=== PATIENT | female | born 1945 | race Caucasian/White ===

== ENCOUNTER → 2016-12-16 | Outpatient (CLI) | payer OTHER, MEDICARE ==
[~2016-12-16] VITALS: Ht 157.5 cm; Wt 71.2 kg
[~2016-12-16] MED LIST: AMBIEN 5 MG TABL5 M1 PO; ASPIR 8181 M1 PO; CALCIUM PO; HYDROCODONE-AP1 EAC6 PO; LEVOTHYROXIN0.125 M1 PO; LYRICA 50 MG50 MG PO; NEURONTIN 300300 M1 PO; NEURONTIN600 MG PO; PERCOCET 10-321 EACH PO; PRILOSEC OTC20 MG PO; TOPROL XL50 MG PO; XANAX 0.25 MG0.25 MG PO
--- NOTE | ~2016-12-16 | HPC ---
[facility] [address] [place] [address] PAIN MANAGEMENT CONSULTATION Name: JOHN PAUL STEINBERG [id number] Admission: 12/16/16 Attend Phys: Marco Mcfarlane DO Discharge: Date of : 43 Report #: [id number] THIS REPORT FOR: //name// CC: Marco Miranda DATE OF SERVICE: 12/16/2016 DATE OF SERVICE: 12/16/2016 CHIEF COMPLAINT: Low back pain, left lower extremity pain and paresthesias. HISTORY OF PRESENT ILLNESS: As you know, patient is a very pleasant 71-year-old female, who returns today in followup visit with recurrent low back pain, left lower extremity pain and paresthesias. She is placing pain score 7/10. States the pain is exacerbated with lying down, doing any activities, improves with medication, sitting and cold compresses. The patient indicates that she received 2 epidural injections under fluoroscopic guidance while she was in [place]. Apparently a caudal epidural injection was performed as well as an interlaminar injection. The patient received no benefit with either of these injections. She returns today in followup visit with pain level of 7/10 stating that she is considering surgical options, but at this time wants to undergo the 3rd and the final in series of epidural injections in the 6 months. She does understand that the 2 injections provided in [place] count as part of her injection series. She has requested to undergo this injection today in hopes of improving pain. ALLERGIES: No known drug allergies. CURRENT MEDICATIONS: Oxycodone, alprazolam, gabapentin, zolpidem, calcium carbonate, aspirin, levothyroxine, pregabalin, Toprol, omeprazole. SOCIAL HISTORY: The patient denies tobacco, alcohol, IV or illicit drug use. She is retired. She is accompanied by her , who is present in the room today. PHYSICAL EXAMINATION: VITAL SIGNS: Blood pressure 146/77, pulse is 73, respiratory rate 18, unlabored. The patient is 100% on room air. Height 5 feet 2 inches tall, weight 157, BMI calculated 28.7. GENERAL: Well-developed, well-nourished, well-hydrated 71-year-old female. She appears her stated age. She is placing current pain score 7/10. HEENT: Normocephalic, atraumatic. Pupils equal, round, reactive to light. Extraocular muscles are intact. Sclerae nonicteric without injection. NEUROLOGIC: Cranial nerves 2-12 grossly [place] [address] PAIN MANAGEMENT CONSULTATION Name: JOHN PAUL STEINBERG Room #: REG [facility].#: [id number] Admission: 12/16/16 Attend Phys: Marco Mcfarlane DO Discharge: Date of : 43 Report #: [id number] LUNGS: Clear. No wheeze, rhonchi or rales. CARDIOVASCULAR: Regular. No appreciable gallop or rub. ABDOMEN: Soft, mildly obese, normal active bowel sounds. EXTREMITIES: Show no clubbing, no cyanosis, no edema. MUSCULOSKELETAL: There is well-healed surgical scar over the lower lumbar spine from previous surgery. Seated straight leg raising negative. Supine straight leg raising positive. May's test negative. Modified Gaenslen's positive for axial low back pain. Ankle clonus negative. Babinski is negative. Muscle bulk and tone equal and symmetrical in lower extremities. Gait is mildly antalgic. ASSESSMENT: 1. Symptomatic lumbar radiculopathy. 2. Post-laminectomy syndrome. 3. Displacement of lumbar intervertebral disk with radicular symptoms. 4. Lumbosacral spondylosis with radicular symptoms. 5. Degeneration of the lumbar spine. 6. Chronic intractable pain. PLAN: 1. The patient returns today in followup visit where she indicates that she has had 2 epidural injections under fluoroscopic guidance performed in [place] before her return to the [facility]. From the paperwork, it is noted the patient underwent a caudal epidural injection received about 10% improvement in overall pain. She underwent an interlaminar epidural steroid injection under fluoroscopic guidance, which appears to be in the intrathecal space based on dye spread. The patient reports no improvement in symptoms with this injection as well. She has returned today requesting a single injection from our clinic, as she is aware that this is the third in the series of epidural injections in the 6 months. The patient and I did discuss at length the risks and the benefits of a possible third epidural injection. These risks include but are not necessarily limited to bleeding, bruising, infection, worsening pain, no relief of pain, also risk of temporary or permanent muscle weakness, temporary or permanent nerve damage, possible paralysis and . The patient states understood and wished to proceed. 2. The patient has appointment with her neurosurgeon to discuss surgical options. I will defer to the surgery team to discuss options of treatment. I did once again discuss with the patient spinal cord stimulator technology and its potential benefits. She will consider this as an option. She wishes to discuss further with neurosurgery. 3. We will see the patient back in followup visit on an as needed basis. As you are aware, this is the third and final in the 6 months series of injections. Her next injection would be 6 months from the initial injection in the caudal form performed in [place]. She was given the timeframe to which she can then reinitiate the next in the series of epidural injections. PROCEDURE NOTE [facility] [address] [place] [address] PAIN MANAGEMENT CONSULTATION Name: JOHN PAUL STEINBERG [facility] [id number] Admission: 12/16/16 Attend Phys: Marco Mcfarlane DO Discharge: Date of : 43 Report #: [id number] DESCRIPTION OF PROCEDURE: Epidural steroid injection under fluoroscopic guidance. After obtaining written consent, the patient was taken back to fluoroscopy suite, placed in prone position with pillow under abdomen to decrease lumbar lordosis. Skin overlying lumbosacral area prepped and draped in aseptic fashion. The lumbar intervertebral spaces were identified by AP fluoroscopy. Skin and subcutaneous tissue overlying target site of injection was anesthetized with 3 mL of 1% lidocaine. A 20-gauge 3-1/2 inch Tuohy needle advanced under fluoroscopic guidance towards the epidural space using a left paramedian approach. Epidural space identified using loss of resistance to air technique. After negative aspiration for heme or cerebrospinal fluid, 1 mL of Omnipaque was injected. A lumbar epidurogram was confirmed using both AP and oblique fluoroscopy as well as lateral fluoroscopy. After negative aspiration for heme or cerebrospinal fluid, 5 mL of a solution containing 2 mL 40 mg per mL, 80 mg total triamcinolone and 3 mL of lidocaine 1% injected slowly. Needle retracted group home, needle tract flushed 3 mL of 1% lidocaine and removed. Sterile bandage placed over injection site. No new motor deficits present in lower extremity following the procedure. The patient tolerated the procedure well, carefully escorted to recovery room in stable condition. No apparent complications. After meeting discharge criteria, the patient discharged home. By: [id number] Marco Mcfarlane DO /nt
[2016-12-16 09:58] VITALS: BP 146/77
== END | disposition home or self-care (01) ==
LOC: PAIN 12-10 10:55
DX: M51.16 Intervertebral disc disorders with radiculopathy, lumbar region (principal); M96.1 Postlaminectomy syndrome, not elsewhere classified; M47.27 Other spondylosis with radiculopathy, lumbosacral region; G89.29 Other chronic pain

== ENCOUNTER → 2017-12-23 | Outpatient (CLI) | payer OTHER, MEDICARE ==
[~2017-12-23] VITALS: Ht 157.5 cm; Wt 67.0 kg
[~2017-12-23] MED LIST changes: +OXYCODONE HCL5 M1 PO; -PERCOCET 10-321 EACH PO; +PERCOCET PO; +ROXICODONE5 MG PO
--- NOTE | ~2017-12-23 | HPC ---
[facility] [place] [address] PAIN MANAGEMENT CONSULTATION Name: JOHN PAUL STEINBERG Room #: REG RUBEN Shon#: [id number] Admission: 12/23/17 Attend Phys: Marco Mcfarlane DO Discharge: Date of : 43 Report #: [id number] THIS REPORT FOR: //name// CC: Marco Miranda MD DATE OF SERVICE: 12/23/2017 CHIEF COMPLAINT: Low back pain, left lower extremity pain and paresthesias. HISTORY OF PRESENT ILLNESS: As you know, the patient is a 72-year-old female who returns today in followup visit requesting epidural injection under fluoroscopic guidance. She has been advised by her neurosurgeon, Dr. Fox that no further interventions from a surgical standpoint would provide benefit. She is now placing pain score 6/10. She returns today in followup visit to discuss options for treatment. We discussed in the past epidural injections and they have provided some benefit and she has requested this today. We also discussed once again today the spinal cord stimulator therapy. Medication management can be initiated, but with opioid medication changes, there is a concern of long-term treatment options that may not be available. She does return requesting refill on medications at current dosing and has requested an epidural injection in hopes to improve pain. We will make further adjustments in her Lyrica as well. ALLERGIES: No known drug allergies. CURRENT MEDICATIONS: Alprazolam, Lyrica, zolpidem, oxycodone, calcium carbonate, aspirin, levothyroxine, metoprolol and omeprazole. SOCIAL HISTORY: The patient denies tobacco, alcohol, IV or illicit drug use. She is accompanied by her today. PQRS: The patient has known osteoarthritis, no rheumatoid arthritis. She places pain score at 6/10. She is not a fall risk, but has been using a cane for ambulation. She has not fallen in the last 3 months. She is not on blood thinner. She is treated for hypertension. She has been on opioids on and off for years. She is a low risk for opioid misuse. Pain impact score of 57/70 indicating severe interference. ALLERGIES: No known drug allergies. PHYSICAL EXAMINATION: VITAL SIGNS: Blood pressure 132/72, pulse 76, respiratory rate 14, unlabored. The patient is 98% on room air. Height 5 feet 2 inches tall, weight 147.8 pounds, BMI calculated 27. [address] [address] PAIN MANAGEMENT CONSULTATION Name: JOHN PAUL STEINBERG Room #: REG CLI [facility]#: [id number] Admission: 12/23/17 Attend Phys: Marco Mcfarlane DO Discharge: Date of : 43 Report #: [id number] GENERAL: Well-developed, well-nourished, well-hydrated 72-year-old female appearing stated age. Pain is rated around 6/10. HEENT: Normocephalic, atraumatic. Pupils equal, round, reactive to light. EXTREMITIES: Show no clubbing, no cyanosis, no edema. MUSCULOSKELETAL: Seated straight leg raising negative. Supine straight leg raising negative. May's test negative. Gait is antalgic favoring left lower extremity over right. Well-healed surgical scar of the lumbar region. Ankle clonus negative. Babinski is negative. ASSESSMENT: 1. Symptomatic lumbar radiculopathy. 2. Failed lumbar spine surgery. 3. Displacement of a lumbar intervertebral disk with radiculopathy. 4. Lumbosacral spondylosis with radiculopathy. 5. Chronic intractable pain. PLAN: 1. The patient returns today in followup visit indicating that she has recently talked with her surgeon and they advised that there is no option for surgery to address the patient's ongoing pain issues. She has been advised to return to our clinic and trial an epidural injection and determine if this would be beneficial. She returns today requesting this epidural injection be provided today. The patient was advised risks and benefits of this procedure, states understood and wished to proceed. 2. Recommend the patient increase her pregabalin to 300 mg once a day. This should help with neuropathic pain. We will increase the medication dose at this time. I have given her samples of the therapy. If this is effective, she will contact our clinic for refills. 3. The patient was provided prescription of oxycodone 5 mg dose, 1 tab 5 times a day as needed. I have given her #150 tablets, releases of today, 4 weeks from today, 8 weeks from today, 3 months worth of medication. As you are aware, we attempted to start the patient on long-acting formulation but coverage was suboptimal and the patient could not afford long-term therapy. We reverted back to the oxycodone, which has been somewhat beneficial. The patient states no side effects with its use. We will continue the therapy at this time, but adjust medications as necessary. 4. The patient was advised risks and benefits of a lumbar epidural injection. These risks include but are not necessarily limited to bleeding, bruising, infection, worsening pain, no relief of pain, also risk of temporary or permanent muscle weakness, temporary or permanent nerve damage, possible paralysis and . The patient states she understood and wished to proceed. 5. The patient will return to our clinic in 3 months for medication therapy or earlier for the next in a series of epidural injections and discussed the possibility of spinal cord stimulator technology. PROCEDURE NOTE [facility] [address] [place] [address] PAIN MANAGEMENT CONSULTATION Name: JOHN PAUL STEINBERG Room #: REG CLLaura Menendez#: [id number] Admission: 12/23/17 Attend Phys: Marco Mcfarlane DO Discharge: Date of : 43 Report #: [id number] DESCRIPTION OF PROCEDURE: Lumbar epidural steroid injection under fluoroscopic guidance. After obtaining written consent, the patient was taken back to fluoroscopy suite, placed in prone position with pillow under abdomen to decrease lumbar lordosis. Skin overlying lumbosacral area prepped and draped in aseptic fashion. Lumbar intervertebral space was identified by AP fluoroscopy. Skin and subcutaneous tissue overlying target site of injection was anesthetized with 3 mL of 1% lidocaine. A 20-gauge 3-1/2 inch Tuohy needle advanced under fluoroscopic guidance towards the epidural space using a midline approach. Epidural space was identified using loss of resistance to air technique. After negative aspiration for heme or cerebrospinal fluid, 1 mL of Omnipaque was injected. A lumbar epidurogram was confirmed using both AP and lateral fluoroscopy. After negative aspiration for heme or cerebrospinal fluid, 5 mL of a solution containing 2 mL 40 mg per mL, 80 mg total triamcinolone, 3 mL lidocaine 1% injected slowly. Needle retracted custodial, flushed with 1 mL of 1% lidocaine and removed. Sterile bandage placed over injection site. No new motor deficits present in lower extremity following procedure. The patient tolerated the procedure well, carefully escorted to recovery room in stable condition. No apparent complications. After meeting discharge criteria, the patient discharged home. By: [id number] Marco Mcfarlane DO /nt
[2017-12-23 09:43] VITALS: BP 132/72
== END | disposition home or self-care (01) ==
LOC: PAIN 06:56
DX: M51.16 Intervertebral disc disorders with radiculopathy, lumbar region (principal); M47.27 Other spondylosis with radiculopathy, lumbosacral region; G89.29 Other chronic pain; Z98.890 Other specified postprocedural states; Z79.899 Other long term (current) drug therapy

== ENCOUNTER 2018-03-16 17:45 | Emergency (ER) | payer OTHER, MEDICARE ==
[~2018-03-16] VITALS: Ht 157.5 cm; Wt 63.5 kg
[~2018-03-16 17:45] MED LIST changes: -ACYCLOVIR 400400 MG PO; -PREDNISONE 20 M20 M1 PO
[2018-03-16] MEDS ORDERED: PREDNISONE 20 M20 M1 PO (18:39)
[2018-03-16] MEDS ORDERED: ACYCLOVIR 400400 MG PO (18:39)
== END 2018-03-16 18:46 | disposition home or self-care (01) ==
LOC: ER 17:45
DX: R21 Rash and other nonspecific skin eruption (principal); I10 Essential (primary) hypertension; K21.9 Gastro-esophageal reflux disease without esophagitis; M19.90 Unspecified osteoarthritis, unspecified site; Z90.49 Acquired absence of other specified parts of digestive tract; E89.0 Postprocedural hypothyroidism

== ENCOUNTER → 2018-03-16 | Outpatient (CLI) | payer OTHER, MEDICARE ==
[~2018-03-16] VITALS: Ht 157.5 cm; Wt 65.7 kg
[~2018-03-16] MED LIST changes: +ACYCLOVIR 400400 MG PO; +MS CONTIN15 MG PO; +PREDNISONE 20 M20 M1 PO
--- NOTE | ~2018-03-16 | HPC ---
[facility] [address] [place] [address] PAIN MANAGEMENT CONSULTATION Name: JOHN PAUL STEINBERG Room #: REG RUBEN Serina.#: [id number] Admission: 03/16/18 Attend Phys: Marco Mcfarlane DO Discharge: Date of : 43 Report #: [id number] THIS REPORT FOR: //name// CC: Marco Miranda MD DATE OF SERVICE: 03/16/2018 REFERRING PHYSICIAN: Vincenzo Miranda M.D. CHIEF COMPLAINT: Low back pain, lower extremity pain and paresthesias, left greater than right. HISTORY OF PRESENT ILLNESS: As you know, the patient is a 73-year-old female who returns today in followup visit with ongoing low back pain, lower extremity symptoms with paresthesias. The patient underwent surgery with a fusion of the lumbar region. Unfortunately, there has been some complications with the surgery in one of the stabilizing rods has displaced and Surgery is evaluating the patient for possible further treatment. Recent MRI shows no neural foraminal stenosis, no nerve root impingement and no central canal stenosis or lateral recess stenosis and it appears her symptoms are related to chronic neuropathic symptoms and chronic low back pain. She returns today to discuss options for treatment. The patient is also describing symptoms of increasing abdominal discomfort, which appears to be related more to constipation issues. She returns to discuss options for treatment of this as well. She denies new injury, new trauma or any changes in medical history since our last visit. She has followed up with Neurosurgery who indicates no surgical option to address her ongoing back pain issues. ALLERGIES: No known drug allergies. CURRENT MEDICATIONS: Alprazolam, Lyrica, zolpidem, oxycodone, calcium carbonate, aspirin, levothyroxine, metoprolol and omeprazole. SOCIAL HISTORY: The patient denies tobacco, alcohol or IV or illicit drug use. She is accompanied by her who present in room today. PQRS: The patient has history of osteoarthritis involving the low back, bilateral knees and hips. No diagnosis of rheumatoid arthritis. She places pain score today around 4/10. She is not a fall risk, has not had a fall in the last 3 months but does use a cane for ambulation. She is not on blood thinners. She is treated for hypertension. She has been on and off opioids for very long periods of time. She has a low risk of abuse potential. Her functional assessment pain impact score 48/70. [facility] [address] [place] [address] PAIN MANAGEMENT CONSULTATION Name: JOHN PAUL STEINBERG Room #: REG CLI [facility]#: [id number] Admission: 03/16/18 Attend Phys: Marco Mcfarlane DO Discharge: Date of : 43 Report #: [id number] PHYSICAL EXAMINATION: VITAL SIGNS: Blood pressure 121/71, pulse 83 and respiratory rate 16 and unlabored. The patient is 96% on room air. Height 5 feet 2 inches tall, weight 144.8 pounds and BMI calculated 26.5. GENERAL: Well-developed, well-nourished and well-hydrated 73-year-old female, appears her stated age, placing current pain score 4/10. HEENT: Normocephalic and atraumatic. Pupils equal, round and reactive to light. Extraocular muscles are intact. EXTREMITIES: Show no clubbing, no cyanosis and no edema. MUSCULOSKELETAL: There is a well-healed surgical scar over the lumbar region. Gait remains antalgic favoring left lower extremity over right. Muscle bulk and tone equal and symmetrical on the lower extremities. Seated straight leg raising negative. Supine straight leg raising positive. Fabere's test negative. Modified Gaenslen's positive for axial low back pain. ASSESSMENT: 1. Symptomatic lumbar radiculopathy. 2. Failed lumbar spine surgery. 3. Displacement of lumbar intervertebral disk with radicular symptoms. 4. Lumbosacral spondylosis with radiculopathy. 5. 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 6. Opioid-induced constipation. 7. Chronic intractable pain. PLAN: 1. The patient has returned today in followup visit where she has discussed increasing abdominal discomfort and cramping. This appears to be related to the increase in her oxycodone use. I believe she is experiencing some opioid-induced constipation, which is causing abdominal discomfort. We discussed with the patient options for treatment. We would recommend initially conservative treatment with sadu-jws-yoziggn laxative type medications as this is ineffective. The possible addition of Amitiza or possibly Movantik if this continues. The patient will monitor her bowel movements more carefully and determine if her medications are the source of her symptoms. It does appear from physical exam and history she provides is just the case, we will monitor more closely but we will make additional changes to her daily regimen for bowel prophylaxis. 2. The patient apparently saw her neurosurgeon who advised the failure of the fusion from a standpoint of the slipping of the stabilizing jefferson on the left side will be monitored. There is no definitive surgery time. It does not appear that there are any changes in the fusion itself. The cages appear to be stable as does the fixation on the right. The fixation of the left has moved significantly from imaging in April of last year. In April, the jefferson was only 0.5 cm from its original position is now to 2-2.5 cm distance from. This may be the source of some of the patient's axial back pain but surgical options do not appear imminent. We would recommend watchful waiting. [facility] [address] [place] [address] PAIN MANAGEMENT CONSULTATION Name: JOHN PAUL STEINBERG Room #: REG RUBEN Shon#: [id number] Admission: 03/16/18 Attend Phys: Marco Mcfarlane DO Discharge: Date of : 43 Report #: [id number] 3. In regards to the patient's ongoing pain issues, we have discussed the options for treatment. She underwent an epidural injection at last visit per Dr. Croft's request. Unfortunately, this did not provide much in the way of improvement. We would recommend a more conservative treatment option with medication management to determine if we can control her symptoms successfully. If this is ineffective, I would recommend the patient returns to discuss with Dr. Croft the spinal cord stimulator option. 4. The patient will be started on MS Contin 15 mg dose and this will be used for baseline pain control. I am hopeful this will reduce the patient's constipation issues likely due to immediate release formulation of oxycodone as you are aware long-acting medications have less long-term effect on gastrointestinal issues and do immediate release formulations, which caused more consistent slowing of the bowel. We will start the patient on morphine today. We will review its efficacy at followup visit. She was given a 15 mg tablet of MS Contin twice a day to provide analgesia at present, the patient is taking 5 mg dose of oxycodone, which equals a 7.5 mg morphine dose per dosing. This appears to be an equivalent exchange of medication. She will monitor for any side effects of medication. We will discuss efficacy at followup visit. 5. The patient will contact the clinic next week with response to the morphine. There is a potential we may need to adjust her medications slightly and I am hopeful she will see good benefit without side effects. She will contact our clinic next week for further directions. 6. We will see the patient back in followup visit on an as needed basis. Again, she will contact our clinic next week about efficacy with the morphine. <ELECTRONICALLY SIGNED> By: Marco Mcfarlane DO 03/17/18 [id number] Marco Mcfarlane DO /nt
[2018-03-16 09:39] VITALS: BP 121/71
== END ==
LOC: PAIN 07:33
DX: M47.26 Other spondylosis with radiculopathy, lumbar region (principal); M51.16 Intervertebral disc disorders with radiculopathy, lumbar region; G89.4 Chronic pain syndrome; F11.99 Opioid use, unspecified with unspecified opioid-induced disorder

== ENCOUNTER → 2018-04-12 | Outpatient (CLI) | payer OTHER, MEDICARE ==
[~2018-04-12] MED LIST changes: +ACYCLOVIR 400400 MG PO; +PREDNISONE 20 M20 M1 PO
== END ==
LOC: ULTRA 09:54
DX: M79.89 Other specified soft tissue disorders (principal); M79.661 Pain in right lower leg; Z88.9 Allergy status to unspecified drugs, medicaments and biological substances

== ENCOUNTER → 2018-06-18 | Outpatient (CLI) | payer OTHER, MEDICARE ==
[~2018-06-18] VITALS: Ht 157.5 cm; Wt 65.7 kg
--- NOTE | ~2018-06-18 | HPC ---
[facility] [place] [address] PAIN MANAGEMENT CONSULTATION Name: JOHN PAUL STEINBERG Room #: REG [facility]#: [id number] Admission: 06/18/18 Attend Phys: Aldo Petty MD Discharge: Date of : 41 Report #: [id number] THIS REPORT FOR: //name// CC: Aldo Miranda DATE OF SERVICE: 06/18/2018 PRIMARY CARE PHYSICIAN: Vincenzo Miranda MD FOLLOWUP HISTORY: The patient is a 73-year-old female who has been followed in the pain clinic because of low back pain. She also has lower extremity paresthesias. She has undergone surgery with fusion of the lumbar region without significant improvement. 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 She returns today with a request for adjustment of her medications. She has been using morphine. States that her pain is exacerbated by sitting, lying down as well as certain activity of daily living, which can be problematic. She feels that her medications improve her condition. The patient is not having any untoward problems with the medication as return to the pain clinic for renewal of her medication. She is having no side effects. Rates her pain as a 1/10 at this juncture. ALLERGIES: No known drug allergies. CURRENT MEDICATIONS: Morphine sulfate 15 mg b.i.d., alprazolam 0.25 mg t.i.d., Ambien 5 mg at bedtime, calcium 1000 mg daily, aspirin 81 mg, levothyroxine 0.125 mg, Lyrica 50 mg b.i.d., metoprolol XL q. 24 hours, Prilosec 20 mg. PAST MEDICAL HISTORY: Hypothyroid, osteoarthritis, GERD, hypertension. PAST SURGICAL HISTORY: Thyroidectomy, cholecystectomy, back surgery, cancer. Arthroscopic surgery, knee. Again lumbar fusion L3-L4, L4-L5 in 2009. SOCIAL HISTORY: She is retired. REVIEW OF SYSTEMS: Generally good health, wears glasses, varicose veins, numbness and tingling sensation, thyroid disease. LABORATORY DATA: Lumbar spine dated 03/11/2018 lumbar spine 2/3 views anterior lateral spot. There are surgical changes of posterior fusion at L3/L5. Bilateral pedicle screws were noted at L3 and L5. Right posterior jefferson is discontinuous with the right L3 pedicle screw with a gap of approximately 2 cm. The inferior portion of the jefferson appears to have migrated caudally. Posterior to the mid sacral demonstrating progressive interval changes of serial radiographic dating back to 2017. Interbody spacers were noted at L3-L4 and L4-L5. There is retrolisthesis of L2 relative to L3 to 0. Remainder of the lumbar spine [address] [address] PAIN MANAGEMENT CONSULTATION Name: JOHN PAUL STEINBERG [facility] [id number] Admission: 06/18/18 Attend Phys: Aldo Petty MD Discharge: Date of : 43 Report #: [id number] demonstrates normal anterior, posterior alignment. No fracture, focal osteophyte or osteoblastic lesions are present. IMPRESSION: Caudal displacement of the right posterior paraspinal jefferson with a jefferson screw gap measuring 2.1 cm. This is unchanged when compared to the 11/2017 exam. However, it has increased when compared with 2017 where the gap measures 0.5 cm. 1. Mild degenerative changes as noted above. 2. Surgical changes of posterior fusion with interbody spacers at L2-L3 and L3-L4. PAIN CLINIC ASSESSMENT/PQRS: 1. History of osteoarthritis. The patient does have osteoarthritic changes. 2. Rheumatoid arthritis. The patient is not being treated for rheumatoid arthritis. 3. Height 5 feet 2 inches, weight 144 pounds, BMI is 26.5. 4. Vital signs: Blood pressure 114/61, pulse 67, respiratory rate 18, room air saturation 99%. 5. Pain intensity 09/30. 6. Fall risk. The patient has not fallen in the last 3 months. 7. Blood thinner. The patient is not on a blood thinning medication. 8. Hypertension. The patient is being treated for hypertension. 9. Opioid therapy greater than 6 weeks. The patient is receiving opioid medications from the pain clinic. 10. Risk assessment tool. 11. Low risk for use of opioid medication. 12. Functional assessment tool 48/70. 13. Recreational drug use. The patient has never used recreational drugs. Denies use of tobacco. 14. Alcohol: The patient denies use of alcoholic beverages. PHYSICAL EXAMINATION: GENERAL: The patient is a well-developed, well-nourished white female. Appears her stated age. She is alert and oriented x 3. Her affect is appropriate. Speech is fluent. HEENT: Normocephalic, atraumatic. Extraocular eye muscles intact. The patient has good range of motion of her upper neck area. Muscle strength in the upper extremity judged to be 5/5 for the major muscle groups. HEART: Regular rate. ABDOMEN: Nontender. LUNGS: Clear to auscultation without rhonchi or rales. The patient has a well-healed scar in the lower portion of her back. Has pain and discomfort, which is radiating down into the low back area with some chronic tingling. Pain is exacerbated by lifting as well as with medications and things are helped. IMPRESSION: [facility] [address] [place] [address] PAIN MANAGEMENT CONSULTATION Name: JOHN PAUL STEINBERG Room #: REG [facility]#: [id number] Admission: 06/18/18 Attend Phys: Aldo Petty MD Discharge: Date of : 43 Report #: [id number] 1. Symptomatic lumbar radiculopathy. 2. Failed lumbar spine surgery. 3. Lumbar spondylosis with radiculopathy. 4. Degeneration of the lumbar spine. 5. Opioid-induced constipation. 6. Chronic intractable pain. RECOMMENDATIONS: We discussed the treatment options with the patient. At this juncture, we will continue with her current medical regimen. She feels that her medications are helpful. Rates her pain as a 1/10. She is not having any complications from the medication. She is able to think clearly. We will continue with her medications. A script for the medications have been rewritten, MS Contin one tablet p.o. b.i.d. of 15 mg has been renewed. The patient will call us if she has any problems or concerns. We would like to thank you for letting us participate in her care. We hope she continues to improve. <ELECTRONICALLY SIGNED> By: Aldo Petty MD 07/05/18 1124 [id number] Aldo Petty MD /XUAN
[2018-06-18 09:16] VITALS: BP 114/61
== END ==
LOC: PAIN 09:02
DX: G89.4 Chronic pain syndrome (principal); M47.26 Other spondylosis with radiculopathy, lumbar region; K59.09 Other constipation; Z79.899 Other long term (current) drug therapy

== ENCOUNTER → 2018-06-30 | Outpatient (CLI) | payer OTHER, MEDICARE ==
[~2018-06-30] VITALS: Ht 157.5 cm; Wt 66.8 kg
--- NOTE | ~2018-06-30 | HPC ---
[facility] [address] [place] [address] PAIN MANAGEMENT CONSULTATION Name: JOHN PAUL STEINBERG Room #: REG [facility] Serina.#: [id number] Admission: 06/30/18 Attend Phys: Marco Mcfarlane DO Discharge: Date of : 43 Report #: [id number] THIS REPORT FOR: //name// CC: aMrco Miranda MD DATE OF SERVICE: 06/30/2018 CHIEF COMPLAINT: Low back pain, lower extremity pain and paresthesias. HISTORY OF PRESENT ILLNESS: As you know, the patient is a very pleasant 73-year-old female who returns today in followup visit for medication management for her low back pain, lower extremity pain with paresthesias, left greater than right. The patient is currently taking MS Contin 15 mg twice a day with good and prolonged efficacy. She is now placing pain score with this medication, 1/10. She is able to go about all activities of daily living without significant pain interference. She returns today in followup visit to discuss continuation of medication management. The patient does indicate that she is leaving for [place] either Thursday of this week or Thursday of next week for 3 months where they spend the winter. She is in search of 3 prescriptions to last for the month she is wintering in the [place] area. She is denying any side effects again to this medication. ALLERGIES: No known drug allergies. CURRENT MEDICATIONS: Alprazolam, Lyrica, zolpidem, morphine, calcium carbonate, aspirin, levothyroxine, metoprolol and omeprazole. SOCIAL HISTORY: The patient denies tobacco, alcohol, IV or illicit drug use. She is retired. She is accompanied by her who is present in our waiting room. PQRS: The patient has a history of osteoarthritis of low back, bilateral knees, bilateral hips, no diagnosis of rheumatoid arthritis. Pain intensity today 10. She is not a fall risk, has not had a fall in the last 3 months. She does use a cane periodically for ambulation, though this is not prescribed. The patient is not on blood thinners. She is treated for hypertension. She has been on opioids for an extended period of time, but has a low abuse potential. Pain impact score 48/70 indicating moderate to severe interference of daily activities secondary to pain. PHYSICAL EXAMINATION: VITAL SIGNS: Blood pressure 120/64, pulse 91, respiratory rate 16 and unlabored. The patient is 97% on room air. Height 5 feet 2 inches tall, weight 147.2 pounds, BMI calculated 26.9. [address] [address] PAIN MANAGEMENT CONSULTATION Name: JOHN PAUL STEINBERG [id number] Admission: 06/30/18 Attend Phys: Marco Mcfarlane DO Discharge: Date of : 43 Report #: [id number] GENERAL: Well-developed, well-nourished, well-hydrated 73-year-old female, appearing her stated age. She is placing current pain score at 1/10. HEENT: Normocephalic, atraumatic. Pupils equal, round, reactive to light. EXTREMITIES: Show no clubbing, no cyanosis, no edema. MUSCULOSKELETAL: Lower extremity strength is symmetrical 5/5, intact to light touch from L1 through S2 dermatomes. Gait is mildly antalgic favoring left lower extremity, right. This is improved from last visit. Seated straight leg raising negative. Supine straight leg raising positive on the left. May's test is negative. Modified Gaenslen's positive for axial low back pain. ASSESSMENT: 1. Symptomatic lumbar radiculopathy. 2. Failed lumbar spine surgery. 3. Lumbosacral spondylosis with radiculopathy. 4. Degeneration of the lumbar spine. 5. Chronic intractable pain. 6. Complicated medical therapy. PLAN: 1. The patient has returned today in followup visit requesting refill on medications to last for the next 3 months. As you are aware, the patient spends her winter months in [place]. They are planning to leave either this Thursday or Thursday at the latest depending on the recent weather changes that are occurring on the [facility]. The patient is requesting that we release her opioid medication early so that she can have a new prescription of medication for the first month to month and a half while in [place], so that she can then continue her current analgesic benefit and then follow up with medication refills there in [place]. I have agreed to release the initial prescription early and all prescriptions after that to be released on normal monthly manner. 2. The patient was provided prescription of MS Contin 15 mg dose 1 tab p.o. b.i.d. I have given the patient #60 to release immediately for her trip out of [facility]. I have also provided her with a prescription to release in 4 weeks and then again in 8 weeks for her typical refill dates. These prescriptions were provided to the patient in written form today. 3. The patient will submit to a urine drug screen to be obtained today. This is part of our screening process to evaluate patients. The patient has agreed to undergo this testing. 4. We reviewed the fact that opiate medications are being used to provide analgesia adequate to support activities of daily living, not attempting to achieve a specific pain score on the 0-10 Visual Analog Scale. The current opiate medications are providing sufficient analgesia to allow the patient to participate in activities of daily living. The patient is not exhibiting any aberrant behavior suggestive of drug diversion. The patient is not having any adverse reactions to medications. The patient is not suffering from daytime somnolence or mental acuity changes. The patient is managing opiate-induced constipation with appropriate [id number] agents and dietary [facility] [address] [place] [address] PAIN MANAGEMENT CONSULTATION Name: JOHN PAUL STEINBERG Room #: REG RUBEN Menendez#: [id number] Admission: 06/30/18 Attend Phys: Marco Mcfarlane DO Discharge: Date of : 43 Report #: [id number] considerations. The patient was counseled on concern for caution with operating a motor vehicle while using opiate medications. A physical exam was performed and the patient's functional status was evaluated. All patients with back pain were advised against the bed rest greater than 4 days and were advised to return to normal activities. Pain score assessment was noted and the treatment plan was reviewed with the patient. All current medications, both prescribed and OTC were reviewed and reconciled on the electronic medical record. Tobacco screening was accomplished and smoking cessation was advised when indicated. BMI was noted and diet/exercise modification was recommended for all patients following outside normal parameters. I reviewed with the patient today their responsibilities to safeguard prescription medications, reviewed their responsibility to utilize medications only as prescribed by the physician. They are to seek and receive pain medications only from 1 physician group ( [facility]). They are to use 1 pharmacy and keep the clinic informed if they change pharmacies. Their responsibilities include making followup visits in a timely fashion and to avoid abrupt discontinuation of medication usage. Their responsibilities further include bringing their medications (bottles from the pharmacy with residual pills) to the visit for possible confirmation of pill counts and the patient understands it is their responsibility to submit to random drug screens to ensure both that the medications prescribed are present, and that no other controlled substances are present. All prescriptions provided today were generated electronically. 5. We will see the patient back in followup visit in approximately 3-1/2 months. <ELECTRONICALLY SIGNED> By: Marco Mcfarlane DO 07/07/18 1059 [id number] Marco Mcfarlane DO /nt
[2018-06-30 10:37] VITALS: BP 120/64
== END ==
LOC: PAIN 06:50
DX: M47.27 Other spondylosis with radiculopathy, lumbosacral region (principal); M51.16 Intervertebral disc disorders with radiculopathy, lumbar region; G89.4 Chronic pain syndrome; Z79.899 Other long term (current) drug therapy

== ENCOUNTER → 2018-12-28 | Outpatient (CLI) | payer OTHER, MEDICARE ==
[~2018-12-28] VITALS: Ht 157.5 cm; Wt 66.2 kg
[~2018-12-28] MED LIST changes: -LEVOTHYROXIN0.125 M1 PO; +MS CONTIN 30 MG30 MG PO; +MS CONTIN30 MG PO; +PAMELOR25 MG PO; +SYNTHROID137 MC1 PO
--- NOTE | ~2018-12-28 | HPC ---
[facility] [address] [place] [address] PAIN MANAGEMENT CONSULTATION Name: JOHN PAUL STEINBERG Room #: REG Laura Serina.#: [id number] Admission: 12/28/18 ������������������ Attend Phys: Marco Mcfarlane DO Discharge: ������������������ Date of : 43 Report #: [id number] THIS REPORT FOR: //name// CC: Marco Miranda DATE OF SERVICE: 12/28/2018 REFERRING PHYSICIAN: Vincenzo Miranda MD CHIEF COMPLAINT: Low back pain, lower extremity pain and paresthesias. HISTORY OF PRESENT ILLNESS: As you know, the patient is a very pleasant 73-year-old female who returns today in followup visit reporting increasing overall pain, now placing pain score at 3/10. She states that while she was in [place] recently for her typical wintertime, she had an adjustment made in medication. She went from 15 mg morphine twice a day to 30 mg twice a day. This was written by a physician in that area and she was advised to return to our clinic to remain on this elevated dose of medication despite the fact that her symptoms are not improving with increased opioid therapy. She returns with continued and ongoing pain issues. She is concerned she has had changes in her lumbar spine. As you are aware, the patient has had a complication to her fusion with the L3 pedicle screw on the right nonadherent and the fusion retaining jefferson has slipped and she is concerned this may be causing some of her symptoms. I am convinced that she has had changes at the L5-S1 level, though the extent of that, I am unable to answer. I do not feel her symptoms are related to that displaced retaining jefferson. She returns for refill of higher dose of opioid medication and discuss possible imaging to determine "what may have changed in her lumbar spine." She denies injury or trauma that may have led to symptom development. ALLERGIES: No known drug allergies. CURRENT MEDICATIONS: MS Contin 30 mg twice a day, omeprazole 20 mg once a day, metoprolol 50 mg once a day, pregabalin 150 mg in the morning and 175 at night, levothyroxine 137 mcg per day, aspirin 81 mg a day, calcium carbonate 1000 mg once a day, zolpidem 5 mg per day, alprazolam 0.25 mg t.i.d. SOCIAL HISTORY: The patient denies tobacco, alcohol, IV or illicit drug use. She is retired, retired years ago, accompanied by her present in room today. IMAGING: No new imaging available. PQRS: The patient has known osteoarthritic changes of the lumbar spine, [address] [address] PAIN MANAGEMENT CONSULTATION Name: JOHN PAUL STEINBERG Room #: REG [facility]alls.#: [id number] Admission: 12/28/18 ������������������ Attend Phys: Marco Mcfarlane DO Discharge: ������������������ Date of : 43 Report #: [id number] bilateral knees, bilateral hips. No diagnosis of rheumatoid arthritis. She is placing pain intensity today at 1-3/10. She is not a fall risk, has not had a fall in the last 3 months. She is not on blood thinners. She is treated for hypertension. She is on chronic opioids. She is at a low risk for opioid addiction. She is placing pain impact score at 48/70 indicating moderate to severe interference with daily activities secondary to pain. PHYSICAL EXAMINATION: VITAL SIGNS: Blood pressure 127/70, pulse 67, respiratory rate 16 and unlabored. The patient is 98% on room air. Height 5 feet 2 inches tall, weight 146 pounds, BMI calculated 26.7. GENERAL: Well-developed, well-nourished, well-hydrated 73-year-old female, appearing stated age, pain is rated up to 3/10. HEENT: Normocephalic, atraumatic. Pupils equal, round, reactive to light. EXTREMITIES: Show no clubbing, no cyanosis and no edema. MUSCULOSKELETAL: Gait is mildly antalgic favoring left lower extremity over right. Muscle bulk and tone is symmetrical on looking at the left lower extremity versus right. Seated straight leg raising negative. Supine straight leg raising positive on the left. May's test negative. Modified Gaenslen's positive for axial low back pain. Ankle clonus negative. Babinski is negative. ASSESSMENT: 1. Symptomatic lumbar radiculopathy. 2. Failed lumbar spine surgery. 3. Lumbosacral spondylosis with radiculopathy. 4. Degeneration of the lumbar spine. 5. Chronic intractable pain. 6. Complicated medication management, utilizing elevated doses of opioids. PLAN: 1. The patient returns today in followup visit having doubled her morphine via a physician change in [place]. I did not recommend this elevated dose of medication and the fact that the patient is seeing no significant improvement, I would recommend that the patient reduce the dose as quickly as possible. At present, she wishes further evaluation before making further adjustments in the therapy. She is experiencing significant side effects to the morphine including increased constipation, but also significant dryness of the mouth and eyes, which is typical for elevated doses of opioids. The patient feels that the medication at this time was necessary and wants a month worth of prescriptions with the understanding that adjustments will be necessary to reduce this excessively high dose in an older individual. 2. The patient was provided prescription for MS Contin 30 mg dose 1 tablet p.o. b.i.d. I have given the patient #60 tablets, releasing today, no refills. 3. We have started the patient on nortriptyline 25 mg dose p.o. at bedtime. We are adding this to her medication management list in hopes of improving neuropathic pain. I did advise the patient there is a strong possibility we can [facility] [address] [place] [address] PAIN MANAGEMENT CONSULTATION Name: JOHN PAUL STEINBERG Room #: REG RUEBN Menendez#: [id number] Admission: 12/28/18 ������������������ Attend Phys: Marco Mcfarlane DO Discharge: ������������������ Date of : 41 Report #: [id number] exacerbate her dry mouth and dry eyes with the addition of nortriptyline, but she cannot escalate her dose of Lyrica further due to somnolence. We are hopeful that a secondary agent utilizing the tricyclic route of treatment might improve overall pain. She was given #90 tablets and 1 refill. She was advised to start 1 tablet at night for 7 days, then 2 tablets at night for 7 days and then if necessary, 3 tablets p.o. at bedtime. 4. The patient will be sent for a CT examination of the lumbar spine. We wish to further evaluate the lumbar area to determine if surgical options are necessary. I am very concerned about the L5-S1 level and the possible worsening of the stenotic changes at that area. The patient is more concerned about the complications with her fusion, though I do not feel this is the source of symptoms as her pain tends to be more left sided and her pedicle screw issue is on the right. We will have the patient undergo CT examination and review findings next week. 5. The patient to return to our clinic next week to review CT examination findings and discuss options for treatment further. ��������������������������������������������� ���������������������������������������� By: ��������������������������������������������� 0826 [id number] Marco Mcfarlane DO /nt
[2018-12-28 09:23] VITALS: BP 127/70
--- NOTE | 2018-12-28 09:44 | NUR ---
Pain Clinic Assessment: 1. History of Osteoarthritis: YES History of Rheumatoid Arthritis: NO 2. Height: 5 ft. 2 in. 157.5 cm. Weight: 146.0 lb. oz. 66.225 kg. Patient's BMI: 26.7 3. Vital Signs: BP: 127/70 Pulse: 67 Resp: 16 Temp: 02 Sat: 98 ECG Mon: 4. Pain Intensity: 3 5. Fall Risk: Dizziness: N Needs help standing or walking: N Fallen in the last 3 months: N Fall risk comments: 6. Patient on Blood Thinner: None 7. History of Hypertension: Y 8. Opioid Therapy greater than 6 weeks: Y Opiate Contract Signed: 06/30/18 9. Risk Assessment Tool Provided: 1-LOW RISK 10. Functional Assessment Tool: 11. Recreational Drug Use: Never Drug Type: Tobacco Use: Never Smoker Tobacco Type: Amount or Packs/day: How Many Years: Alcohol Use: No Frequency: Quant:
== END ==
LOC: PAIN 06:52
DX: M47.27 Other spondylosis with radiculopathy, lumbosacral region (principal); M96.1 Postlaminectomy syndrome, not elsewhere classified; G89.4 Chronic pain syndrome; Z79.899 Other long term (current) drug therapy

== ENCOUNTER → 2019-01-04 | Outpatient (CLI) | payer OTHER, MEDICARE ==
[~2019-01-04] VITALS: Ht 157.5 cm; Wt 66.0 kg
[2019-01-04 09:10] VITALS: BP 124/69
--- NOTE | 2019-01-04 09:25 | NUR ---
Pain Clinic Assessment: 1. History of Osteoarthritis: YES History of Rheumatoid Arthritis: NO 2. Height: 5 ft. 2 in. 157.5 cm. Weight: 145.4 lb. oz. 65.953 kg. Patient's BMI: 26.6 3. Vital Signs: BP: 124/69 Pulse: 73 Resp: 14 Temp: 02 Sat: 97 ECG Mon: 4. Pain Intensity: 3-4 5. Fall Risk: Dizziness: N Needs help standing or walking: N Fallen in the last 3 months: N Fall risk comments: 6. Patient on Blood Thinner: None 7. History of Hypertension: Y 8. Opioid Therapy greater than 6 weeks: Y Opiate Contract Signed: 06/30/18 9. Risk Assessment Tool Provided: 1-LOW RISK 10. Functional Assessment Tool: 11. Recreational Drug Use: Never Drug Type: Tobacco Use: Never Smoker Tobacco Type: Amount or Packs/day: How Many Years: Alcohol Use: No Frequency: Quant:
--- NOTE | 2019-01-05 09:13 | HPC ---
[facility] [address] [place] [address] PAIN MANAGEMENT CONSULTATION Name: JOHN PAUL STEINBERG Room #: REG RUBEN Serina.#: [id number] Admission: 01/04/19 ������������������ Attend Phys: Marco Mcfarlane DO Discharge: ������������������ Date of : 41 Report #: [id number] THIS REPORT FOR: //name// CC: Marco Miranda DATE OF SERVICE: 01/04/2019 CHIEF COMPLAINT: Low back pain, lower extremity pain with paresthesias. HISTORY OF PRESENT ILLNESS: As you know, the patient is a very pleasant 73-year-old female who returns today in followup visit to review recent CT examination of the lumbar spine. The patient was noting increasing pain without inciting injury or trauma. There was concern that changes had occurred in her lumbar spine post-surgery. She returns to review this finding and discuss treatment options. She denies new injury or trauma that may have led to symptom recurrence. As you are aware, has had a doubling of her MS Contin when she went to [place]. This was done without her knowledge, when she returns she is now taking 30 mg of MS Contin twice a day, though noted no improvement in symptoms. She is experiencing side effects mainly of dry mouth and dry eyes. She returns to discuss options for treatment. ALLERGIES: No known drug allergies. CURRENT MEDICATIONS: Alprazolam, Lyrica, zolpidem, morphine, calcium carbonate, aspirin, levothyroxine, metoprolol, omeprazole, nortriptyline. SOCIAL HISTORY: The patient denies tobacco, alcohol, IV or illicit drug use. She is retired. She is accompanied by her present in room today. IMAGING: CT lumbar spine obtained at 12/29/2018 shows L1-L2 unremarkable, L2-L3 unremarkable. L3-L4 shows postsurgical changes of hemilaminectomy and posterior fusion, interbody spacers present, spinal canal was decompressed. There is partial osseous fusion of the facets, moderate right and chbg-hu-yveflqii left neural foraminal narrowing present. There is again right jefferson from L3 pedicle screw without significant change, that is displaced, but again unchanged from previous evaluations. L4-L5, post-surgical changes of laminectomy, posterior fusion, spinal canal was decompressed, mild bilateral facet arthropathy, L5-S1 joint space narrowing, vacuum phenomena present, endplate sclerosis, diffuse posterior disk bulge present. Bilateral facet arthropathy, narrowing of the central canal to 0.6 cm. PQRS: The patient has known history of osteoarthritic changes of the lumbar spine, bilateral knees, bilateral hips, no diagnosis of rheumatoid arthritis. She is placing pain intensity today at 3-/10. She is not a fall risk, [place] [address] PAIN MANAGEMENT CONSULTATION Name: JOHN PAUL STEINBERG Room #: REG RUBEN Menendez#: [id number] Admission: 01/04/19 ������������������ Attend Phys: Marco Mcfarlane DO Discharge: ������������������ Date of : 43 Report #: [id number] have fallen in the last 3 months. She is on a blood thinner. She is treated for hypertension. She has been on chronic opioid. She has a low risk of opioid addiction, though was on excessively high doses of opioids. She has pain impact score 48/70 indicating slftrhwa-bi-bkcnvk interference of daily activities secondary to pain. PHYSICAL EXAMINATION: VITAL SIGNS: Blood pressure 124/69, pulse 73, respiratory rate 14 and unlabored. The patient is 97% on room air. Height 5 feet 2 inches tall, weight 145.4 pounds, BMI calculated 26.6. GENERAL: Well-developed, well-nourished, well-hydrated 74-year-old female appearing stated age, placing current pain score at 3-4/10. HEENT: Normocephalic, atraumatic. Pupils equal, round, reactive to light. EXTREMITIES: Show no clubbing, no cyanosis, and no edema. MUSCULOSKELETAL: Lower extremity strength equal and symmetrical 5/5, intact to light touch from L1 through S2 dermatomes. Gait is mildly antalgic favoring left lower extremity over right. Seated straight leg raising negative. Supine straight leg raising positive on the left. ASSESSMENT: 1. Symptomatic lumbar radiculopathy. 2. Failed lumbar spine surgery. 3. Spinal stenosis of the lumbar spine. 4. Displacement of lumbar intervertebral disk with radiculopathy. 5. Lumbosacral spondylosis with radiculopathy. 6. Degeneration of lumbar spine. 7. Complicated medication management. 8. Chronic intractable pain. PLAN: 1. The patient returns today in followup visit where we have taken over 28 minutes of time reviewing the CT obtained on 12/29/2018. We then discussed the treatment options based on the findings and please do indicate that the L1-2, L2-3 level have no significant changes. They appear normal. L3-L4, L4-L5 is decompressed and is not the source of the symptoms, the patient is experiencing, though there is a displaced anterior interbody fusion jefferson. This does not appear to have moved from previous evaluations. The findings of that are likely source of the patient's pain at the L5-S1 level with moderate central canal stenosis and neural foraminal stenosis. It is not unusual to see findings of this type in the lower lumbar spine, specifically after fusions. We discussed with the patient treatment options at this juncture for ongoing pain and lower extremity symptoms. 2. We discussed physical therapy, stretching exercises and core strengthening for which I believe the patient would see benefit and she is amenable to undergo. We discussed medication changes such as the ones were made at last visit escalating the dose of nortriptyline further for neuropathic pain control. [facility] [address] [place] [address] PAIN MANAGEMENT CONSULTATION Name: JOHN PAUL STEINBERG Room #: REG RUBEN Menendez#: [id number] Admission: 01/04/19 ������������������ Attend Phys: Marco Mcfarlane DO Discharge: ������������������ Date of : 43 Report #: [id number] I am concerned about the rapid escalation of opioids done in [place] without our knowledge. She is now doubled her dose of morphine in a 24-hour period. She went from 30 mg to 60 mg and yet noticing nothing but side effects. Adjustments in this medication may be necessary. We also discussed lumbar epidural injection under fluoroscopic guidance to determine if her symptoms might be improved with such procedure. Finally, we discussed surgical procedures. The patient is not interested in looking to spinal cord stimulator. After reviewing the risks and benefits of all proposed treatment options, the patient chose to move forward with an epidural injection. 3. The patient was advised risks and benefits of a lumbar epidural injection. These risks include but are not necessarily limited to bleeding, bruising, infection, worsening pain, no relief of pain, also risk of temporary or permanent muscle weakness, temporary or permanent nerve damage, possible paralysis and . The patient states understood and wished to proceed. 4. We did provide the patient a refill of her morphine at 30 mg dose twice a day. I did advise the patient that this will not be sustained. We will not remain on this medication as I do feel this number is excessively high given the findings of her imaging study. At this time, it will be difficult to wean down on this medication until her pain is improved with an adjunctive treatment. We offered in 1 month with prescription today. She was given #60 tablets of the 30 mg morphine extended release with no refills. 5. I have recommended the patient further increase her nortriptyline. This will help with neuropathic pain and may be opioid sparing. She is to watch for increased dry mouth and dry eyes with escalating this dose this may further compound the side effects of the morphine. If this is the case, the patient will contact our clinic. 6. We will see the patient back in followup visit in 1 month for review the efficacy of the epidural and medication changes made today. PROCEDURE NOTE: DESCRIPTION OF PROCEDURE: L5-S1 interlaminar epidural steroid injection under fluoroscopic guidance. After obtaining written consent, the patient was taken back to fluoroscopy suite, placed in prone position with pillow under abdomen to decrease lumbar lordosis. Skin overlying lumbosacral area then prepped and draped in aseptic fashion. Lumbar intervertebral spaces were identified by AP fluoroscopy. Skin and subcutaneous tissue overlying target site of injection anesthetized with 3 mL of 1% lidocaine. A 20-gauge 3-1/2 inch Tuohy needle advanced under fluoroscopic guidance towards the epidural space using a midline approach. Epidural space identified using loss of resistance to air technique. After negative aspiration for heme or cerebrospinal fluid, 1 mL of Omnipaque injected. Lumbar epidurogram confirmed using both AP and lateral fluoroscopy. After negative aspiration for heme or [address] [address] PAIN MANAGEMENT CONSULTATION Name: IDRISJOHN PAUL Room #: REG RUBEN Menendez#: [id number] Admission: 01/04/19 ������������������ Attend Phys: Marco Mcfarlane DO Discharge: ������������������ Date of : 43 Report #: [id number] cerebrospinal fluid, 5 mL of a solution containing 2 mL 40 mg per mL, 80 mg total triamcinolone, 3 mL lidocaine 1% injected slowly. Needle retracted fpc, flushed with 1 mL of 1% lidocaine and then removed. Sterile bandage placed over injection site. No new motor deficits present in lower extremity following procedure. The patient tolerated procedure well, carefully escorted to recovery room in stable condition. No apparent complications. After meeting discharge criteria, the patient discharged home. ��������������������������������������������� <ELECTRONICALLY SIGNED> ���������������������������������������� By: Marco Mcfarlane DO ��������������������������������������������� 01/05/19 0913 [id number] Marco Mcfarlane DO /nt
== END | disposition home or self-care (01) ==
LOC: PAIN 06:49
DX: M48.061 Spinal stenosis, lumbar region without neurogenic claudication (principal); M51.16 Intervertebral disc disorders with radiculopathy, lumbar region; G89.29 Other chronic pain; Z79.899 Other long term (current) drug therapy; Z98.890 Other specified postprocedural states

== ENCOUNTER → 2019-01-25 | Outpatient (CLI) | payer OTHER, MEDICARE ==
[~2019-01-25] VITALS: Ht 154.9 cm; Wt 63.5 kg
[~2019-01-25] MED LIST changes: +ZOLPIDEM TARTRA10 MG PO
[2019-01-25 08:05] VITALS: BP 126/70
--- NOTE | 2019-01-25 08:12 | NUR ---
Pain Clinic Assessment: 1. History of Osteoarthritis: YES History of Rheumatoid Arthritis: NO 2. Height: 5 ft. 1 in. 154.9 cm. Weight: 140.0 lb. oz. 63.504 kg. Patient's BMI: 26.5 3. Vital Signs: BP: 126/70 Pulse: 74 Resp: 16 Temp: 02 Sat: 95 ECG Mon: 4. Pain Intensity: 1 5. Fall Risk: Dizziness: N Needs help standing or walking: N Fallen in the last 3 months: N Fall risk comments: 6. Patient on Blood Thinner: None 7. History of Hypertension: Y 8. Opioid Therapy greater than 6 weeks: Y Opiate Contract Signed: 06/30/18 9. Risk Assessment Tool Provided: 1-LOW RISK 10. Functional Assessment Tool: 11. Recreational Drug Use: Never Drug Type: Tobacco Use: Never Smoker Tobacco Type: Amount or Packs/day: How Many Years: Alcohol Use: No Frequency: Quant:
--- NOTE | 2019-01-26 07:31 | HPC ---
[facility] [place] [address] PAIN MANAGEMENT CONSULTATION Name: JOHN PAUL STEINBERG Room #: REG RUBEN Menendez#: [id number] Admission: 01/25/19 ������������������ Attend Phys: Shell Mccray Discharge: ������������������ Date of : 43 Report #: [id number] THIS REPORT FOR: //name// CC: Shell Mccray [facility] DATE OF SERVICE: 01/25/2019 CHIEF COMPLAINT: Low back pain, lower extremity pain and paresthesias. HISTORY OF PRESENT ILLNESS: This is a very pleasant 74-year-old female, who returns to the pain clinic today for discussion of her pain medicines and possible refill. She tells me that her pain is a 1 today, mostly in her lower back and left leg, occasionally tingly, intermittent pain. She tells me that she is significantly better. She is not sure if it is from the lumbar epidural steroid injection that she received on 01/04/2019 or it is from the nortriptyline. She tells me this is the best she has ever felt. Her only complaints today are of dry mouth from the nortriptyline. She continues on her morphine sulfate 30 mg twice a day and tells me that is also very helpful as well as resting and reclining. She has no problems with constipation or daytime sleepiness. She is here with her today. They tell me they are on their way to [place] and are unsure of how long they will be staying, so that makes the question of should they get a prescription from us today or should they wait and see their doctor in [place]. ALLERGIES: No known drug allergies. MEDICATIONS: Ambien 10 mg at bedtime, MS Contin 30 mg b.i.d., nortriptyline 50 mg at bedtime, Xanax 0.25 t.i.d. p.r.n., calcium, Synthroid 137 mcg, Lyrica 100 b.i.d., Toprol-XL 50 b.i.d. and omeprazole daily. PQRS: She has a known history of arthritic changes in her lumbar spine, knees, hips and has no diagnosis of rheumatoid arthritis. Height is 5 feet 1 inch, weight is 140, BMI is 26. Vital signs: Blood pressure 126/70, pulse 74, respirations 16, oxygen sat is 95. Pain score is 1/10. Fall risk: Denies dizziness. Does not need help walking or standing, has not fallen in the last three months. She is not on any blood thinners and does take medicine for hypertension. She has an opioid therapy greater than six weeks and an opioid signed contract on the chart. Her risk assessment tool is low. Her functional assessment is 48/70. Recreational drug use: She denies. She is not a smoker and does not drink alcohol. We did check the prescription monitoring system. The patient filled her morphine last on 01/20/2019 and not needing a script today. She tells me she does safeguard her meds at all times. [address] [address] PAIN MANAGEMENT CONSULTATION Name: JOHN PAUL STEINBERG Room #: REG RUBEN Menendez#: [id number] Admission: 01/25/19 ������������������ Attend Phys: Shell Mccray Discharge: ������������������ Date of : 43 Report #: [id number] PHYSICAL EXAMINATION: GENERAL: This is a well-developed, well-nourished, well-hydrated 74-year-old female, placing her pain score today at 1/10. HEENT: Normocephalic, atraumatic. Extraocular eye muscles are intact. Mucous membranes are moist. EXTREMITIES: No clubbing, no cyanosis, no edema. MUSCULOSKELETAL: Lower extremity strength equal and symmetrical to 5/5. Gait is mildly antalgic favoring her left lower extremity over her right. ASSESSMENT: 1. Symptomatic lumbar radiculopathy. 2. Failed lumbar spine surgery. 3. Spinal stenosis of the lumbar spine. 4. Displacement of the lumbar intervertebral disk with radiculopathy. 5. Lumbosacral spondylosis with radiculopathy. 6. Complicated medical management. 7. Chronic intractable pain. We reviewed the fact that opiate medications are being used to provide analgesia adequate to support activities of daily living, not attempting to achieve a specific pain score on the 0-10 Visual Analog Scale. The current opiate medications are providing sufficient analgesia to allow the patient to participate in activities of daily living. The patient is not exhibiting any aberrant behavior suggestive of drug diversion. The patient is not having any adverse reactions to medications. The patient is not suffering from daytime somnolence or mental acuity changes. The patient is managing opiate-induced constipation with appropriate avwy-hdg-knjlyof agents and dietary considerations. The patient was counseled on concern for caution with operating a motor vehicle while using opiate medications. A physical exam was performed and the patient's functional status was evaluated. All patients with back pain were advised against the bed rest greater than 4 days and were advised to return to normal activities. Pain score assessment was noted and the treatment plan was reviewed with the patient. All current medications, both prescribed and OTC were reviewed and reconciled on the electronic medical record. Tobacco screening was accomplished and smoking cessation was advised when indicated. BMI was noted and diet/exercise modification was recommended for all patients following outside normal parameters. I reviewed with the patient today their responsibilities to safeguard prescription medications, reviewed their responsibility to utilize medications only as prescribed by the physician. They are to seek and receive pain medications only from 1 physician group ( [facility]). They are to use 1 pharmacy and keep the clinic informed if they change pharmacies. Their responsibilities include making followup visits in a timely fashion and to avoid [facility] [address] [place] [address] PAIN MANAGEMENT CONSULTATION Name: JOHN PAUL STEINBERG Room #: REG [facility] Kateryna.Lynne.#: [id number] Admission: 01/25/19 ������������������ Attend Phys: Shell Mccray Discharge: ������������������ Date of : 43 Report #: [id number] abrupt discontinuation of medication usage. Their responsibilities further include bringing their medications (bottles from the pharmacy with residual pills) to the visit for possible confirmation of pill counts and the patient understands it is their responsibility to submit to random drug screens to ensure both that the medications prescribed are present, and that no other controlled substances are present. All prescriptions provided today were generated electronically. PLAN: 1. We discussed treatment options with the patient today. The patient and are going to [place] today. She recently filled her morphine on 01/20/2019, therefore, not needing a prescription today, but they are unsure how long they are going to be in [place]. I discussed the case with Dr. Marco Mcfarlane. Our ultimate goal is to decrease her back to 15 mg of morphine twice a day, but since she is going to [place] and is uncertain how long she will be there, we feel that since she is doing quite well on the current regimen to keep her where she is at until she returns here for the summer. The patient tells me though she may be back before her next refill, they are just unsure. A script was given to the patient for her morphine 30 b.i.d., #60 to release on 02/17/2019. If she is in [place] at that time, she will go and see her doctor there; if she is back, she will refill it here or if she wishes to decrease her medicines, she can exchange that for a 15 mg of morphine twice a day. They verbalized understanding. 2. Nortriptyline was started on this patient in early December. The patient has been taking two tablets at bedtime for a total of 50 mg dose. She is doing quite well with this dose. I encouraged her not to increase up to the four tablets [address] Dr. Mcfarlane was trying to titrate her to since she is doing well. We discussed lowest most effective dose. The patient is having significant dry mouth. I encouraged her that this will hopefully get better over time, it should not get any worse and she will not be increasing it. Encouraged her to have throat lozenges with her and drink plenty of fluids. 3. brought up the fact of wondering about decreasing the Lyrica. I said as of right now, we would not change that medicine. We are not prescribing it, but how you would decrease that is talk to the primary care doctor and taper it slowly back down as she did when she increased that medicine. 4. The patient will follow up as needed when she returns from her trip and either make an appointment to get further medicines or exchange to get the decrease in her morphine. The patient seen in collaboration today with Dr. Marco Mcfarlane. ��������������������������������������������� <ELECTRONICALLY SIGNED> ���������������������������������������� By: Shell Mccray ��������������������������������������������� 01/26/19 0731 [id number] Shell Mccray /jenn
== END ==
LOC: PAIN 06:45
DX: G89.29 Other chronic pain (principal); M51.16 Intervertebral disc disorders with radiculopathy, lumbar region; M48.061 Spinal stenosis, lumbar region without neurogenic claudication; M47.27 Other spondylosis with radiculopathy, lumbosacral region; Z79.899 Other long term (current) drug therapy; Z79.891 Long term (current) use of opiate analgesic

== ENCOUNTER → 2019-04-26 | Outpatient (CLI) | payer OTHER, MEDICARE ==
[~2019-04-26] VITALS: Ht 154.9 cm; Wt 65.3 kg
[~2019-04-26] MED LIST changes: +MORPHINE SULFAT15 MG PO; +NORTRIPTYLINE H25 M3 PO; +SHINGRIX V50 MCG/0.5 IM
[2019-04-26 09:28] VITALS: BP 120/65
--- NOTE | 2019-04-26 09:35 | NUR ---
Pain Clinic Assessment: 1. History of Osteoarthritis: YES History of Rheumatoid Arthritis: NO 2. Height: 5 ft. 1 in. 154.9 cm. Weight: 144.0 lb. oz. 65.318 kg. Patient's BMI: 27.2 3. Vital Signs: BP: 120/65 Pulse: 78 Resp: 16 Temp: 02 Sat: 100 ECG Mon: 4. Pain Intensity: 0 5. Fall Risk: Dizziness: N Needs help standing or walking: N Fallen in the last 3 months: N Fall risk comments: 6. Patient on Blood Thinner: None 7. History of Hypertension: Y 8. Opioid Therapy greater than 6 weeks: Y Opiate Contract Signed: 06/30/18 9. Risk Assessment Tool Provided: 1-LOW RISK 10. Functional Assessment Tool: 11. Recreational Drug Use: Never Drug Type: Tobacco Use: Never Smoker Tobacco Type: Amount or Packs/day: How Many Years: Alcohol Use: No Frequency: Quant:
--- NOTE | 2019-04-27 14:19 | HPC ---
[facility] [address] [place] [address] PAIN MANAGEMENT CONSULTATION Name: JOHN PAUL STEINBERG Room #: REG [facility] Shon#: [id number] Admission: 04/26/19 ������������������ Attend Phys: Shell Mccray Discharge: ������������������ Date of : 41 Report #: [id number] THIS REPORT FOR: //name// CC: Shell Mccray [facility] DATE OF SERVICE: 04/26/2019 CHIEF COMPLAINT: Low back pain, lower extremity pain and paresthesias. HISTORY OF PRESENT ILLNESS: This is a very pleasant 74-year-old female, who returns to the pain clinic today for refill of her morphine medication that she uses to help treat her low back pain and lower extremity pain. She has recently been in [place] where physician there that she sees has been prescribing her morphine 30 mg twice a day. When we last saw her in January, we did discuss that we would like to decrease her back to her 15 mg of morphine twice a day and she is here to discuss that as well. The patient tells me that her pain score is 0 today. When her pain is at worst, it is a 3/10. It is located in her lower back and left leg. It is tingly, stabbing, intermittent pain that is worse with lying down, but better when her medications are in use or taking her Lyrica as well, which she finds very beneficial. She does continue her nortriptyline she tells me as well that 2 tablets a night. ALLERGIES: No known drug allergies. CURRENT LIST OF MEDICATIONS: Nortriptyline 50 mg at bedtime, MS Contin 30 mg b.i.d., Ambien 10 mg p.r.n., Xanax 0.25 p.r.n., calcium, Synthroid 137 mcg daily, Lyrica 100 mg b.i.d., Toprol-XL 50 mg daily and Prilosec 20 mg daily. PQRS: 1. She does have arthritic changes in her lumbar spine, knees, hips, does not have a diagnosis of rheumatoid arthritis. 2. Height is 5 feet 1 inch, weight is 144, BMI is 27. 3. Vital Signs: Blood pressure 120/65, pulse is 78, respirations 16, oxygen sat is 100. 4. Pain score is 0/10. 5. Fall risk. Denies dizziness, does not need help with standing or walking, has not fallen in the last 3 months. 6. The patient is not on any blood thinners. She does take medicine for hypertension. 7. Opioid therapy is greater than 6 weeks; therefore, an opioid signed contract is on the chart. Risk assessment tool is low. Functional assessment is 48/70. 8. Recreational drug use, she denies. She is not a smoker and [place] [address] PAIN MANAGEMENT CONSULTATION Name: JONH PAUL STEINBERG Room #: REG CLLaura Menendez#: [id number] Admission: 04/26/19 ������������������ Attend Phys: Shell Mccray Discharge: ������������������ Date of : 43 Report #: [id number] According to the prescription monitoring system, she has been filling appropriately here locally, but she just returned from [place] and we do not have those results. PHYSICAL EXAMINATION: GENERAL: This is a well-developed, well-nourished, well-hydrated 74 year old, placing her pain score at 0/10 today. HEENT: Normocephalic, atraumatic. Extraocular eye muscles are intact. Mucous membranes are moist. EXTREMITIES: No clubbing, no cyanosis, no edema. MUSCULOSKELETAL: Lower extremity strength judged to be 5/5. She has a mildly antalgic gait favoring the left over the right. Seated straight raising is negative. Supine straight raising is positive on the left. ASSESSMENT: 1. Symptomatic lumbar radiculopathy. 2. Failed lumbar spine surgery. 3. Spinal stenosis of the lumbar spine. 4. Displacement of the lumbar intervertebral disk with radiculopathy. 5. Lumbosacral spondylosis with radiculopathy. 6. Degeneration of the lumbar spine. 7. Chronic intractable pain. 8. Complicated medical management under terms of written opioid agreement. We reviewed the fact that opiate medications are being used to provide analgesia adequate to support activities of daily living, not attempting to achieve a specific pain score on the 0-10 Visual Analog Scale. The current opiate medications are providing sufficient analgesia to allow the patient to participate in activities of daily living. The patient is not exhibiting any aberrant behavior suggestive of drug diversion. The patient is not having any adverse reactions to medications. The patient is not suffering from daytime somnolence or mental acuity changes. The patient is managing opiate-induced constipation with appropriate qryd-tuk-bdrfqlu agents and dietary considerations. The patient was counseled on concern for caution with operating a motor vehicle while using opiate medications. A physical exam was performed and the patient's functional status was evaluated. All patients with back pain were advised against the bed rest greater than 4 days and were advised to return to normal activities. Pain score assessment was noted and the treatment plan was reviewed with the patient. All current medications, both prescribed and OTC were reviewed and reconciled on the electronic medical record. Tobacco screening was accomplished and smoking cessation was advised when indicated. BMI was noted and diet/exercise modification was recommended for all patients following outside normal parameters. [address] [address] PAIN MANAGEMENT CONSULTATION Name: JOHN PAUL STEINBERG Room #: REG [facility].#: [id number] Admission: 04/26/19 ������������������ Attend Phys: Shell ZAC Shazia Discharge: ������������������ Date of : 43 Report #: [id number] I reviewed with the patient today their responsibilities to safeguard prescription medications, reviewed their responsibility to utilize medications only as prescribed by the physician. They are to seek and receive pain medications only from 1 physician group ( [facility]). They are to use 1 pharmacy and keep the clinic informed if they change pharmacies. Their responsibilities include making followup visits in a timely fashion and to avoid abrupt discontinuation of medication usage. Their responsibilities further include bringing their medications (bottles from the pharmacy with residual pills) to the visit for possible confirmation of pill counts and the patient understands it is their responsibility to submit to random drug screens to ensure both that the medications prescribed are present, and that no other controlled substances are present. All prescriptions provided today were generated electronically. PLAN: 1. We discussed treatment options with the patient today. Again, we talked about lowest most effective dose as we have done many times in the past. I believe the patient would be able to tolerate 15 mg of morphine twice a day and still have much benefit in relieving her pain, though informed her she may not be pain free, we believe, in the lowest most effective dose; therefore, we will try to decrease her back to 15 mg of morphine twice a day, placing her at 30 morphine mEq according to the CDC guidelines. This is the dose that Dr. Mcfarlane had had her on for several months that was beneficial before the [place] doctor increased her. I also believe that the patient will have less side effects such as dry mouth with this decrease in the medication and less constipation. The patient will continue 30 mg in the morning for 4 days with 15 mg at night, then after her 30 mg of morphine are finished, she will start her 15 mg twice a day. The patient verbalizes understanding. Scripts given today for 60 tablets with release today in 4 week. 2. The patient will continue her nortriptyline 25 mg 2 at bedtime. If she feels that she needs to increase to 3 after her pain medications have been decreased, she is able to do that, but I reminded her of the side effects of dry mouth again. Scripts given for 120 with one additional refill. 3. The patient does not need Lyrica today. She recently filled this medication paying benz in [place] of about $700 since she is in the [facility] for her medications currently. 4. The patient is seen with Dr. Marco Mcfarlane who collaborated care. The patient will return in 2 months' time. ��������������������������������������������� <ELECTRONICALLY SIGNED> ���������������������������������������� By: Shell Mccray ��������������������������������������������� 04/27/19 1419 1311 [id number] Shell Mccray /jenn
== END ==
LOC: PAIN 06:54
DX: M47.27 Other spondylosis with radiculopathy, lumbosacral region (principal); M48.061 Spinal stenosis, lumbar region without neurogenic claudication; M51.16 Intervertebral disc disorders with radiculopathy, lumbar region; G89.4 Chronic pain syndrome; Z79.899 Other long term (current) drug therapy; Z79.891 Long term (current) use of opiate analgesic

== ENCOUNTER → 2019-06-14 | Outpatient (CLI) | payer OTHER, MEDICARE ==
[~2019-06-14] VITALS: Ht 154.9 cm; Wt 66.6 kg
[2019-06-14 10:12] VITALS: BP 117/66
--- NOTE | 2019-06-14 10:21 | NUR ---
Pain Clinic Assessment: 1. History of Osteoarthritis: YES History of Rheumatoid Arthritis: NO 2. Height: 5 ft. 1 in. 154.9 cm. Weight: 146.8 lb. oz. 66.588 kg. Patient's BMI: 27.8 3. Vital Signs: BP: 117/66 Pulse: 79 Resp: 16 Temp: 02 Sat: 97 ECG Mon: 4. Pain Intensity: 2-3 5. Fall Risk: Dizziness: N Needs help standing or walking: N Fallen in the last 3 months: N Fall risk comments: 6. Patient on Blood Thinner: None 7. History of Hypertension: Y 8. Opioid Therapy greater than 6 weeks: Y Opiate Contract Signed: 06/30/18 9. Risk Assessment Tool Provided: 1-LOW RISK 10. Functional Assessment Tool: 11. Recreational Drug Use: Never Drug Type: Tobacco Use: Never Smoker Tobacco Type: Amount or Packs/day: How Many Years: Alcohol Use: Yes Frequency: Special Occasions Quant:
--- NOTE | 2019-06-15 09:31 | HPC ---
[facility] [address] [place] [address] PAIN MANAGEMENT CONSULTATION Name: JOHN PAUL STEINBERG Room #: REG [facility] Serina.#: [id number] Admission: 06/14/19 Attend Phys: Shell Mccray Discharge: Date of : 43 Report #: [id number] THIS REPORT FOR: //name// CC: Shell Mccray [facility] DICTATED BY: Shell Mccray [employer]PECT[employer] DATE OF SERVICE: 06/14/2019 CHIEF COMPLAINT: Low back pain, lower extremity pain, and paresthesias. HISTORY OF PRESENT ILLNESS: This is a 74-year-old pleasant female who returns to the Pain Clinic today for a refill of her medications. She uses morphine to help treat her low back pain and lower extremity pain. She reports a pain score of 2-3 today of a tingly intermittent numbness feeling in her lower back and most significantly in left leg, which is better with her medications and resting or reclining. The patient denies any problems with constipation or daytime sleepiness. She feels that decreasing her medicines from MS Contin 30 to 15 has had no impact on her pain score; she feels the same at the lower dose and is grateful that she was able to decrease this medicine and not have increased pain. She is here wondering today if she needs to be on this medication for the rest of her life, and if so, a refill of this medication before she goes to [place] for the winter. CURRENT LIST OF MEDICATIONS: Nortriptyline 50 mg at bedtime, MS Contin 15 mg b.i.d., Ambien p.r.n., alprazolam 0.25 mg daily, calcium, Synthroid, Lyrica, Toprol, and omeprazole. PQRS: 1. She has arthritic changes in her lumbar spine, knees, hips, and is not being treated for rheumatoid arthritis. 2. Height is 5 feet 1 inch, weight is 146, BMI is 27. 3. Blood pressure 117/66, pulse is 79, respirations 16, oxygen sat is 97. 4. Pain score 2-3. 5. Denies dizziness, does not need help walking or standing, has not fallen in the last 3 months. 6. The patient is not on any blood thinners, but does take medicine for hypertension. 7. Opioid therapy is greater than 6 weeks. Therefore, an opioid signed contract is on the chart. Risk assessment tool is low. Functional assessment is 48/70. 8. Recreational drug use, she denies. She is not a smoker and occasionally drinks alcohol. We did check the prescription monitoring system[place] [address] PAIN MANAGEMENT CONSULTATION Name: JOHN PAUL STEINBERG Room #: REG [facility] Shon#: [id number] Admission: 06/14/19 Attend Phys: Shell Mccray Discharge: Date of : 43 Report #: [id number] appropriately for her medications. She is not due today, but she will need a script prior to going to [place] for the winter. PHYSICAL EXAMINATION: GENERAL: This is a well-developed, well-nourished, well-hydrated 74-year-old female who appears her stated age, placing her current pain score 2-3 today. HEENT: Normocephalic, atraumatic. Extraocular eye muscles are intact. Mucous membranes are moist. EXTREMITIES: No clubbing, no cyanosis, no edema. MUSCULOSKELETAL: She walks with a mildly antalgic gait. Seated straight leg raising is negative. Tenderness across the lumbar spine with radicular symptoms into her left leg following the L4-L5 and L5-S1 dermatomal distribution. Lower extremity strength judged to be 5/5 bilaterally. ASSESSMENT: 1. Symptomatic lumbar radiculopathy. 2. Failed lumbar spine surgery. 3. Spinal stenosis of the lumbar spine. 4. Lumbosacral spondylosis with radiculopathy. 5. Displacement of the lumbar intervertebral disk with radiculopathy. 6. Degeneration of the lumbar spine. 7. Chronic intractable pain. 8. Complicated medical management under terms of written opioid agreement. We reviewed the fact that opiate medications are being used to provide analgesia adequate to support activities of daily living, not attempting to achieve a specific pain score on the 0-10 Visual Analog Scale. The current opiate medications are providing sufficient analgesia to allow the patient to participate in activities of daily living. The patient is not exhibiting any aberrant behavior suggestive of drug diversion. The patient is not having any adverse reactions to medications. The patient is not suffering from daytime somnolence or mental acuity changes. The patient is managing opiate-induced constipation with appropriate zaje-gay-prhcptb agents and dietary considerations. The patient was counseled on concern for caution with operating a motor vehicle while using opiate medications. A physical exam was performed and the patient's functional status was evaluated. All patients with back pain were advised against the bed rest greater than 4 days and were advised to return to normal activities. Pain score assessment was noted and the treatment plan was reviewed with the patient. All current medications, both prescribed and OTC were reviewed and reconciled on the electronic medical record. Tobacco screening was accomplished and smoking cessation was advised when indicated. BMI was noted and diet/exercise modification was recommended for all patients following outside normal parameters. [address] [address] PAIN MANAGEMENT CONSULTATION Name: JOHN PAUL STEINBERG Room #: REG CLLaura Smalls#: [id number] Admission: 06/14/19 Attend Phys: Shell Mccray Discharge: Date of : 43 Report #: [id number] I reviewed with the patient today their responsibilities to safeguard prescription medications, reviewed their responsibility to utilize medications only as prescribed by the physician. They are to seek and receive pain medications only from 1 physician group ( [facility]). They are to use 1 pharmacy and keep the clinic informed if they change pharmacies. Their responsibilities include making followup visits in a timely fashion and to avoid abrupt discontinuation of medication usage. Their responsibilities further include bringing their medications (bottles from the pharmacy with residual pills) to the visit for possible confirmation of pill counts and the patient understands it is their responsibility to submit to random drug screens to ensure both that the medications prescribed are present, and that no other controlled substances are present. All prescriptions provided today were generated electronically. PLAN: 1. We discussed treatment options with the patient today. I explained to her that she may need to be on her medications for the rest of her life that we could try to decrease her pain medicine over time again, and see how her pain reacts to the decrease in medications. We believe in the lowest most effective dose. The patient is worried about if she only took one pill a day that she would go through withdrawal symptoms. I explained to her there are medications that are once a day long-acting medications, but as of right now, we would encourage her to stay at her current level of morphine 15 mg twice a day. 2. I encouraged the patient not to have her [place] pain doctor increase her morphine as she did last winter when she was there to 30 mg. The patient is doing quite well on her 15 mg with less side effects of constipation, though she continues to have some dry mouth. The patient verbalizes understanding that she will try to keep at 15 mg while in [place]. I encouraged her if her pain does increase that maybe she would consider an epidural from that doctor instead of raising her opioids. 3. We discussed her nortriptyline. The patient has been taking 2 tablets at night. She does continue to have mouth dryness. I encouraged her to try and decrease to one tablet at bedtime to see if she notices any difference in her pain and sleep. If she does not, I encouraged her to stay at one tablet at bedtime instead of 2 to hopefully decrease some of her side effects. She verbalizes understanding. No scripts needed for this medication since she has plenty at home with one additional refill. Scripts given today for her MS Contin 15 mg b.i.d. to release 07/22 prior to going to [place] for 6 months. She still has in her possession her 4-week prescription that she will fill in June. 4. The patient is seen in collaboration with Dr. Marco Mcfarlane who did see the [address] [address] PAIN MANAGEMENT CONSULTATION Name: JOHN PAUL STEINBERG Room #: REG [facility] Menendez#: [id number] Admission: 06/14/19 Attend Phys: Shell Mccray Discharge: Date of : 41 Report #: [id number] patient as well today. The patient will return in January after her winter in [place], unless she determines she needs to come home for an epidural midwinter. <ELECTRONICALLY SIGNED> By: Marco Mcfarlane DO 06/15/19 0931 [id number] Marco Mcfarlane DO /nt
== END ==
LOC: PAIN 06:54
DX: M47.27 Other spondylosis with radiculopathy, lumbosacral region (principal); M51.17 Intervertebral disc disorders with radiculopathy, lumbosacral region; M48.07 Spinal stenosis, lumbosacral region; Z87.891 Personal history of nicotine dependence

== ENCOUNTER → 2019-12-13 | Outpatient (CLI) | payer OTHER, MEDICARE ==
[~2019-12-13] VITALS: Ht 154.9 cm; Wt 67.6 kg
[2019-12-13 10:09] VITALS: BP 127/70
--- NOTE | 2019-12-13 10:21 | NUR ---
Pain Clinic Assessment: 1. History of Osteoarthritis: KNEE-RT History of Rheumatoid Arthritis: DENIES 2. Height: 5 ft. 1 in. 154.9 cm. Weight: 149.0 lb. oz. 67.586 kg. Patient's BMI: 28.2 3. Vital Signs: BP: 127/70 Pulse: 79 Resp: 14 Temp: 02 Sat: 100 ECG Mon: 4. Pain Intensity: 2 5. Fall Risk: Dizziness: N Needs help standing or walking: N Fallen in the last 3 months: N Fall risk comments: 6. Patient on Blood Thinner: None 7. History of Hypertension: Y 8. Opioid Therapy greater than 6 weeks: Y Opiate Contract Signed: 06/30/18 9. Risk Assessment Tool Provided: 1-LOW RISK 10. Functional Assessment Tool: 11. Recreational Drug Use: Never Drug Type: Tobacco Use: Never Smoker Tobacco Type: Amount or Packs/day: How Many Years: Alcohol Use: Yes Frequency: Monthly Quant:
--- NOTE | 2019-12-15 09:05 | HPC ---
[facility] [place] [address] PAIN MANAGEMENT CONSULTATION Name: JOHN PAUL STEINBERG Room #: REG [facility] Serina.#: [id number] Admission: 12/13/19 Attend Phys: Shell Mccray Discharge: Date of : 41 Report #: [id number] THIS REPORT FOR: cc: Vincenzo Miranda MD, Rene P. MD Hocker, Amanda CNS ~ DATE OF SERVICE: 12/13/2019 CHIEF COMPLAINT: Low back pain, lower extremity pain, and paresthesias. HISTORY OF PRESENT ILLNESS: This is a very pleasant 74-year-old female who returns to the pain clinic today for refill of her medications. She reports that her pain is a 2/10 today. She recently returned from [place] greater than 2 weeks ago due to the COVID-19 virus. She thought that she should leave [place], which was a high risk area and return home. Here, she has been in her house for last 2 weeks since returning from [place]. While in [place] this winter she did have her right knee replaced. She went through physical therapy and currently is walking without any cane or walker. She states that it feels much better and is able to go up steps without pain. During her course of treatment postoperatively she did have some breakthrough pain medicine prescribed by her doctor in [place]. The patient reports her pain is in her lower back that radiates down her left leg to her left knee. It is a tingling, sharp, aching feeling that is worse with lying down. She feels the medication is very beneficial in controlling her low back pain. She denies any problems with significant constipation as long as she takes a stool softener every other night. She denies any daytime sleepiness. ALLERGIES: No known drug allergies. CURRENT LIST OF MEDICATIONS: Morphine ER 15 mg b.i.d., nortriptyline 25 mg at bedtime, Ambien, alprazolam, calcium, Synthroid, Lyrica, metoprolol, omeprazole. PATIENT'S PQRS: 1. She has a history of osteoarthritis in her bilateral knees and spine. Denies any rheumatoid arthritis. Height is 5 feet 1 inch. Weight is 149. BMI is 28. 2. Vital signs 127/70, pulse is 79, respirations 14, oxygen sat is 100. 3. Pain score is 2/10. 4. Denies dizziness, does not need help walking or standing, has not fallen in the last 3 months. 5. The patient is not on any blood thinners, but does take medicine for hypertension. Opioid therapy is greater than 6 weeks. Therefore, an opioid signed contract is on the chart. Risk assessment tool is low. Functional [address] [address] PAIN MANAGEMENT CONSULTATION Name: JOHN PAUL STEINBERG Room #: REG RUBEN Menendez#: [id number] Admission: 12/13/19 Attend Phys: Shell Mccray Discharge: Date of : 41 Report #: [id number] assessment is . 6. Recreational drug use, she denies. Does not smoke and occasionally drinks alcohol. According to the prescription monitoring system, the patient is filling appropriately for her medications filling them in a timely fashion. Most recently was filling in [place]. We will check a random drug screen on her at her next visit. She was tested in [place], but our last screening was greater than a year ago. According to the CDC guidelines, her morphine mEq is 30 MMEs per day. PHYSICAL EXAMINATION: GENERAL: This is a well-developed, well-nourished, well-hydrated, alert 74-year-old female who appears her stated age placing her current pain score at 2/10 today. HEENT: Normocephalic, atraumatic. Extraocular eye muscles are intact. Mucous membranes are moist. EXTREMITIES: No clubbing, no cyanosis, no edema. She has a well-healed approximated scar on her right knee from recent surgery. MUSCULOSKELETAL: She has a slightly antalgic gait. She has tenderness across her lumbar spine that radiates into her left leg following the L4-5, L5-S1 dermatomal distribution. Her lower extremity strength is judged to be equal at 5/5 with good sensation from L1 to S2. ASSESSMENT: 1. Symptomatic lumbar radiculopathy. 2. Failed lumbar spine surgery. 3. Spinal stenosis of the lumbar spine. 4. Lumbar spondylosis with radiculopathy. 5. Osteoarthritis with recent right knee replacement. 6. Chronic intractable pain. 7. Complex medical management under terms of written opioid agreement. We reviewed the fact that opiate medications are being used to provide analgesia adequate to support activities of daily living, not attempting to achieve a specific pain score on the 0-10 Visual Analog Scale. The current opiate medications are providing sufficient analgesia to allow the patient to participate in activities of daily living. The patient is not exhibiting any aberrant behavior suggestive of drug diversion. The patient is not having any adverse reactions to medications. The patient is not suffering from daytime somnolence or mental acuity changes. The patient is managing opiate-induced constipation with appropriate pdlw-zgi-dignyxm agents and dietary considerations. The patient was counseled on concern for caution with operating a motor vehicle while using opiate medications. A physical exam was performed and the patient's functional status was evaluated. [address] [address] PAIN MANAGEMENT CONSULTATION Name: JOHN PAUL STEINBERG Room #: REG [facility]#: [id number] Admission: 12/13/19 Attend Phys: Shell Mccray Discharge: Date of : 43 Report #: [id number] All patients with back pain were advised against the bed rest greater than 4 days and were advised to return to normal activities. Pain score assessment was noted and the treatment plan was reviewed with the patient. All current medications, both prescribed and OTC were reviewed and reconciled on the electronic medical record. Tobacco screening was accomplished and smoking cessation was advised when indicated. BMI was noted and diet/exercise modification was recommended for all patients following outside normal parameters. I reviewed with the patient today their responsibilities to safeguard prescription medications, reviewed their responsibility to utilize medications only as prescribed by the physician. They are to seek and receive pain medications only from 1 physician group ( [facility]). They are to use 1 pharmacy and keep the clinic informed if they change pharmacies. Their responsibilities include making followup visits in a timely fashion and to avoid abrupt discontinuation of medication usage. Their responsibilities further include bringing their medications (bottles from the pharmacy with residual pills) to the visit for possible confirmation of pill counts and the patient understands it is their responsibility to submit to random drug screens to ensure both that the medications prescribed are present, and that no other controlled substances are present. All prescriptions provided today were generated electronically. PLAN: 1. We discussed treatment options with the patient today. The patient finds her medications very beneficial in controlling her pain. She has returned from [place] at her current level of morphine at 15 mg twice a day. She received the medicines while in [place] from her physician there. We will have Dr. Marco Mcfarlane electronically send scripts for 15 mg #60 for today and 4-week supply. 2. We discussed her nortriptyline dose. She does take 25 mg at bedtime. She may try to increase to 50. In the past we had tried to increase her significantly higher, but was unable to do so. Today, we will refill this medication for 25 mg #60 with 1 additional refill. The patient is able to increase to 50 mg that will be fine or she can continue at her 25 mg dose. 3. The patient was encouraged to call for an appointment after she fills her second prescription. The patient is seen today in collaboration with Dr. Marco Mcfarlane who did see her as well. <ELECTRONICALLY SIGNED> By: Shell Mccray 12/15/19 0905 [id number] Shell Mccray /nt
== END ==
LOC: PAIN 12-07 10:32
DX: M47.26 Other spondylosis with radiculopathy, lumbar region (principal); M48.061 Spinal stenosis, lumbar region without neurogenic claudication; M79.669 Pain in unspecified lower leg; R20.2 Paresthesia of skin; M17.11 Unilateral primary osteoarthritis, right knee; G89.29 Other chronic pain; F11.20 Opioid dependence, uncomplicated

== ENCOUNTER → 2020-02-07 | Outpatient (CLI) | payer OTHER, MEDICARE ==
[~2020-02-07] VITALS: Ht 154.9 cm; Wt 67.0 kg
[2020-02-07 08:32] VITALS: BP 123/73
--- NOTE | 2020-02-07 08:49 | NUR ---
Pain Clinic Assessment: 1. History of Osteoarthritis: KNEE-RT History of Rheumatoid Arthritis: DENIES 2. Height: 5 ft. 1 in. 154.9 cm. Weight: 147.6 lb. oz. 66.951 kg. Patient's BMI: 27.9 3. Vital Signs: BP: 123/73 Pulse: 77 Resp: 14 Temp: 02 Sat: 97 ECG Mon: 4. Pain Intensity: 2 5. Fall Risk: Dizziness: N Needs help standing or walking: N Fallen in the last 3 months: N Fall risk comments: 6. Patient on Blood Thinner: None 7. History of Hypertension: Y 8. Opioid Therapy greater than 6 weeks: Y Opiate Contract Signed: 06/30/18 9. Risk Assessment Tool Provided: 1-LOW RISK 10. Functional Assessment Tool: 11. Recreational Drug Use: Never Drug Type: Tobacco Use: Never Smoker Tobacco Type: Amount or Packs/day: How Many Years: Alcohol Use: Yes Frequency: Quant:
--- NOTE | 2020-02-08 08:55 | HPC ---
[facility] [address] [place] [address] PAIN MANAGEMENT CONSULTATION Name: JOHN PAUL STEINBERG Room #: REG [facility].#: [id number] Admission: 02/07/20 Attend Phys: Shell Mccray Discharge: Date of : 43 Report #: [id number] THIS REPORT FOR: cc: Vincenzo Miranda MD, Rene P. MD Hocker, Amanda CNS ~ CC: Marco Mcfarlane DO DATE OF SERVICE: 02/07/2020 CHIEF COMPLAINT: Low back pain, lower extremity pain and paresthesias. HISTORY OF PRESENT ILLNESS: As you know, this is a very pleasant 75-year-old female who returns to the pain clinic today for refill of her medications that she takes for her ongoing chronic low back pain and left lower extremity pain. Today, she is reporting a pain score of 2/10. She feels that her medication regimen is working quite well. She says she has intermittent tingly feeling in her back and leg that is worse when she lies down, but she feels the medication has been beneficial, though she has suffered from slight constipation that she is trying to work on a regimen to help with. John Paul does report she is going to [place] next week for part of the summer and will follow up with her pain doctor in [place] during that time for medication refills. ALLERGIES: No known drug allergies. CURRENT LIST OF MEDICATIONS: MS Contin 15 mg b.i.d., nortriptyline 25 mg at bedtime, Ambien, alprazolam, calcium, Synthroid, Lyrica, metoprolol, omeprazole, Colace. PQRS: 1. She has a history of arthritic changes in her knees and spine. Denies any rheumatoid arthritis. 2. Height is 5 feet 1 inches, weight is 147, BMI is 27. 3. Vital signs; blood pressure 123/73, pulse is 77, respirations 14, oxygen sat is 97. 4. Pain score is 2/10. 5. Denies dizziness, does not need help walking or standing, has not fallen in the last 3 months. 6. The patient is not on any blood thinners, but does take medicine for hypertension. Opioid therapy is greater than 6 weeks; therefore, an opioid signed contract is on the chart. Risk assessment tool is low. Functional assessment is 48/70. 7. Recreational drug use, she denies. She is not a smoker and occasionally drinks alcohol. [address] [address] PAIN MANAGEMENT CONSULTATION Name: JOHN PAUL STEINBERG Room #: REG [facility] Shon#: [id number] Admission: 02/07/20 Attend Phys: Shell Mccray Discharge: Date of : 41 Report #: [id number] According to the prescription monitoring system, the patient is past due to fill her medications, filling them appropriately from Dr. Marco Mcfarlane. Her current morphine mEq is 30 MME per day. We will check a random drug screen on this patient today. It has been greater than one year. PHYSICAL EXAMINATION: GENERAL: This is a well-developed, well-nourished, well-hydrated 75-year-old female who appears her stated age, placing her current pain score at 2/10. Her speech is fluent and she is a good historian. HEENT: Normocephalic, atraumatic. Extraocular eye muscles are intact. She is wearing a mask today. EXTREMITIES: No clubbing, no cyanosis, no edema. MUSCULOSKELETAL: She has tenderness in her lumbar spine that radiates down her left leg following the L4-L5 dermatomal distribution. She has a well-healed scar on her right knee. She has a slightly antalgic gait. Lower extremity strength judged to be 5/5 in all major muscle groups with good sensation from L1-S2. ASSESSMENT: 1. Symptomatic lumbar radiculopathy. 2. Failed lumbar spine surgery. 3. Spinal stenosis of lumbar spine. 4. Lumbar spondylosis with radiculopathy. 5. Osteoarthritis with recent right knee replacement. 6. Chronic intractable pain. 7. Constipation. 8. Complex medical management under terms of written opioid agreement. We reviewed the fact that opiate medications are being used to provide analgesia adequate to support activities of daily living, not attempting to achieve a specific pain score on the 0-10 Visual Analog Scale. The current opiate medications are providing sufficient analgesia to allow the patient to participate in activities of daily living. The patient is not exhibiting any aberrant behavior suggestive of drug diversion. The patient is not having any adverse reactions to medications. The patient is not suffering from daytime somnolence or mental acuity changes. The patient is managing opiate-induced constipation with appropriate iwjm-gcz-ntubmnm agents and dietary considerations. The patient was counseled on concern for caution with operating a motor vehicle while using opiate medications. A physical exam was performed and the patient's functional status was evaluated. All patients with back pain were advised against the bed rest greater than 4 days and were advised to return to normal activities. Pain score assessment was noted and the treatment plan was reviewed with the patient. All current medications, both prescribed and OTC were reviewed and reconciled on the [address] [address] PAIN MANAGEMENT CONSULTATION Name: JOHN PAUL STEINBERG Room #: REG RUBEN Menendez#: [id number] Admission: 02/07/20 Attend Phys: Shell Mccray Discharge: Date of : 41 Report #: [id number] electronic medical record. Tobacco screening was accomplished and smoking cessation was advised when indicated. BMI was noted and diet/exercise modification was recommended for all patients following outside normal parameters. I reviewed with the patient today their responsibilities to safeguard prescription medications, reviewed their responsibility to utilize medications only as prescribed by the physician. They are to seek and receive pain medications only from 1 physician group ( [facility]). They are to use 1 pharmacy and keep the clinic informed if they change pharmacies. Their responsibilities include making followup visits in a timely fashion and to avoid abrupt discontinuation of medication usage. Their responsibilities further include bringing their medications (bottles from the pharmacy with residual pills) to the visit for possible confirmation of pill counts and the patient understands it is their responsibility to submit to random drug screens to ensure both that the medications prescribed are present, and that no other controlled substances are present. All prescriptions provided today were generated electronically. PLAN: 1. We discussed treatment options with the patient today. The patient's medication regimen is working quite well in relieving her pain. We will continue with MS Contin 15 mg b.i.d., #60. Dr. Marco Mcfarlane will electronically send her first month. We will give her 4-week script in a written form for her to fill in [place]. If she is unable to fill that there, she is to return this prescription and get her medicines from her [place] pain doctor. 2. We will collect a urine drug screen randomly on this patient today. It has been greater than one year. 3. We did discuss her constipation issues. The patient does take Colace every day and results to Dulcolax several times a week. I encouraged the patient to try Senna or Senokot-S, which is a more gentle laxative as opposed to stimulate on a regular routine. Patient verbalizes understanding. 4. The patient is seen in collaboration with Dr. Marco Mcfarlane. The patient will return to the clinic when she returns from [place]. <ELECTRONICALLY SIGNED> By: Shell Mccray 02/08/20 0855 0924 [id number] Shell Mccray /nt
== END ==
LOC: PAIN 06:48
DX: M47.26 Other spondylosis with radiculopathy, lumbar region (principal); M79.669 Pain in unspecified lower leg; R20.2 Paresthesia of skin; M48.061 Spinal stenosis, lumbar region without neurogenic claudication; M17.11 Unilateral primary osteoarthritis, right knee; G89.29 Other chronic pain; F11.20 Opioid dependence, uncomplicated; K59.00 Constipation, unspecified; M96.1 Postlaminectomy syndrome, not elsewhere classified; Z96.651 Presence of right artificial knee joint

== ENCOUNTER → 2020-03-27 | Outpatient (CLI) | payer OTHER, MEDICARE ==
[~2020-03-27] VITALS: Ht 154.9 cm; Wt 66.2 kg
[2020-03-27 09:53] VITALS: BP 127/71
--- NOTE | 2020-03-27 10:04 | NUR ---
Pain Clinic Assessment: 1. History of Osteoarthritis: KNEE-RT History of Rheumatoid Arthritis: DENIES 2. Height: 5 ft. 1 in. 154.9 cm. Weight: 146.0 lb. oz. 66.225 kg. Patient's BMI: 27.6 3. Vital Signs: BP: 127/71 Pulse: 77 Resp: 14 Temp: 02 Sat: 98 ECG Mon: 4. Pain Intensity: 4 5. Fall Risk: Dizziness: N Needs help standing or walking: N Fallen in the last 3 months: N Fall risk comments: 6. Patient on Blood Thinner: None 7. History of Hypertension: Y 8. Opioid Therapy greater than 6 weeks: Y Opiate Contract Signed: 06/30/18 9. Risk Assessment Tool Provided: 1-LOW RISK 10. Functional Assessment Tool: 11. Recreational Drug Use: Never Drug Type: Tobacco Use: Never Smoker Tobacco Type: Amount or Packs/day: How Many Years: Alcohol Use: Yes Frequency: Quant:
--- NOTE | 2020-03-27 14:33 | HPC ---
[facility] [place] [address] [address] PAIN MANAGEMENT CONSULTATION Name: JOHN PAUL STEINBERG Room #: REG EDELL[facility] Menendez#: [id number] Admission: 03/27/20 Attend Phys: Shell Mccray Discharge: Date of : 41 Report #: [id number] THIS REPORT FOR: cc: Vincenzo Miranda MD, Rene P. MD Hocker, Amanda CNS ~ CC: Marco Mcfarlane DO DATE OF SERVICE: 03/27/2020 CHIEF COMPLAINT: Lumbar radiculopathy. HISTORY OF PRESENT ILLNESS: As you know, this is a very pleasant 75-year-old female who returns to the pain clinic today for refill of her opioid medications. She has been using MS Contin to treat her low back pain and lower extremity pain. She finds it has been very beneficial, rating her pain score today at 4/10. It is intermittent, tingly with occasional sharp pain, especially when she is lying down. She feels that the medication as well as rest or sitting in her recliner are most beneficial. She denies problems with constipation as long as she takes Senokot on every other day basis. She is quite regular. She continues her morphine as well as her nortriptyline. The patient is requesting refills today. The patient and her are moving to [place]. This will be the last visit that she sees us in our clinic on a regular basis. She has already established a pain doctor in [place] and has been seeing them when they winter there. Today, she is only requesting 1 month of medications. They are planning on moving next week. ALLERGIES: No known drug allergies. CURRENT LIST OF MEDICATIONS: Morphine sulfate 15 mg b.i.d., nortriptyline, amlodipine, Xanax, calcium, levothyroxine, Lyrica, metoprolol, omeprazole. PQRS: 1. She has a history of arthritic changes in her knees and spine. Denies any rheumatoid arthritis. 2. Height is 5 feet 1 inch, weight is 146, BMI is 27. 3. Vital signs; 127/71, pulse is 77, respirations 14, oxygen sat is 98, pain score is 4/10. 4. Denies dizziness, does not need help walking or standing, has not fallen in the last 3 months. 5. The patient is not on any blood thinners, but does take medicine for hypertension. Her opioid therapy is greater than 6 weeks; therefore, an opioid signed contract is on the chart. Risk assessment tool is low. Functional assessment is 37/70. She denies recreational drug use or tobacco [place] [address] PAIN MANAGEMENT CONSULTATION Name: JOHN PAUL STEINBERG Room #: REG RUBEN Menendez#: [id number] Admission: 03/27/20 Attend Phys: Shell Mccray Discharge: Date of : 41 Report #: [id number] occasionally does drink alcohol. According to the prescription monitoring system, she last filled here in January. She believes she filled in [place] in February and she is due to fill next week prior to moving to [place]. Her morphine mEq according to the CDC guidelines is 30 MMEs. PHYSICAL EXAMINATION: GENERAL: This is alert and orientated 75-year-old female who is well-developed, well-nourished appearing her stated age, placing her current pain score at 4/10 today. HEENT: Normocephalic, atraumatic. Extraocular eye muscles are intact. She is wearing a mask. EXTREMITIES: No clubbing, no cyanosis, no edema. MUSCULOSKELETAL: She has well-healed scar on her left knee. She has a slightly antalgic gait. She has tenderness in the lumbar sacral region of her spine that does radiate down her left leg following the L4-L5 dermatomal distribution. Her lower extremity strength is symmetrical at 5/5. ASSESSMENT: 1. Symptomatic lumbar radiculopathy. 2. Failed lumbar spine surgery. 3. Spinal stenosis of lumbar spine. 4. Lumbar spondylosis with radiculopathy. 5. Osteoarthritis with recent right knee replacement. 6. Chronic intractable pain. 7. Complex medical management under terms of written agreement. We reviewed the fact that opiate medications are being used to provide analgesia adequate to support activities of daily living, not attempting to achieve a specific pain score on the 0-10 Visual Analog Scale. The current opiate medications are providing sufficient analgesia to allow the patient to participate in activities of daily living. The patient is not exhibiting any aberrant behavior suggestive of drug diversion. The patient is not having any adverse reactions to medications. The patient is not suffering from daytime somnolence or mental acuity changes. The patient is managing opiate-induced constipation with appropriate lmgy-bgt-kdgvsqc agents and dietary considerations. The patient was counseled on concern for caution with operating a motor vehicle while using opiate medications. PLAN: 1. We discussed treatment options with the patient today. She believes her MS Archie is working quite well. Requesting refills only for 1 month since she is moving to [place] next week. She has established pain doctor in [place] who she sees when she rangel there. She will continue her care from that physician. We will have Dr. Marco Mcfarlane send her MS Archie electronically for [address] [address] PAIN MANAGEMENT CONSULTATION Name: JOHN PAUL STEINBERG Room #: REG RUBEN [facility]#: [id number] Admission: 03/27/20 Attend Phys: Shell Mccray Discharge: Date of : 41 Report #: [id number] b.i.d., #60 for 1 month only. 2. The patient states she has plenty of nortriptyline at this time. No prescriptions needed. 3. The patient seen in collaboration with Dr. Marco Mcfarlane. <ELECTRONICALLY SIGNED> By: Shell Mccray 03/27/20 1433 [id number] [id number] Shell Mccray /nt
== END ==
LOC: PAIN 06:49
PROVIDERS: ATTEND Clinical Nurse Specialist Adult Health
DX: M47.26 Other spondylosis with radiculopathy, lumbar region (principal); G89.29 Other chronic pain; M48.061 Spinal stenosis, lumbar region without neurogenic claudication; M96.1 Postlaminectomy syndrome, not elsewhere classified; M17.11 Unilateral primary osteoarthritis, right knee; Z96.651 Presence of right artificial knee joint; Z79.899 Other long term (current) drug therapy